=== PATIENT | male | born 1955 | race African-American/Black ===

== ENCOUNTER 2019-02-26 13:24 | Emergency (ER) | payer OTHER ==
[2019-02-26] MEDS ORDERED: ALBUTEROL 2.5 MG/3 ML NEB SOL ONE (14:14)
[2019-02-26] MEDS ORDERED: AZITHROMYCIN 250 MG TAB ONE (14:14)
[2019-02-26] MEDS ORDERED: FAMOTIDINE 20 MG TAB ONE (14:15)
[2019-02-26] MEDS ORDERED: predniSONE 20 MG TAB ONE (14:15)
--- NOTE | 2019-02-26 15:06 | ER ---
Nurse's Notes [facility] Name: Giovany Carrasquillo Age: 63 yrs Sex: Male : 1955 Arrival Date: 02/26/2019 Time: 13:27 Bed 5 Private MD: Diagnosis: Acute bronchitis, unspecified Presentation: 02/26 13:29 Presenting complaint: Patient states: "I feel like I may have pneumonia, I've been to aj the doctor 3 times for cough and congestion, I just went last week and its not getting better" Denies pain. Denies shortness of breath. Transition of care: patient was not received from another setting of care. Onset of symptoms was February 26, 2019. Risk Assessment: Do you want to hurt yourself or someone else? Patient reports no desire to harm self or others. Initial Sepsis Screen: Does the patient meet any 2 criteria? No. Patient's initial sepsis screen is negative. Does the patient have a suspected source of infection? Yes: Productive cough/pneumonia. Care prior to arrival: None. 13:29 Method Of Arrival: Ambulatory [facility] 13:29 Acuity: MADONNA 3 aj Triage Assessment: 13:31 General: Appears in no apparent distress. comfortable, Behavior is calm, cooperative, aj1 appropriate for age. Pain: Denies pain. Neuro: Level of Consciousness is awake, alert, obeys commands. Cardiovascular: Patient's skin is warm and dry. Respiratory: Airway is patent Respiratory effort is even, unlabored, Respiratory pattern is regular, symmetrical. Historical: - Allergies: 13:31 No Known Allergies; aj1 - Home Meds: 13:31 Flomax Oral [Active]; blood pressure medicine [Active]; aj1 - PMHx: 13:31 Hypertension; aj1 - Immunization history:: Flu vaccine is up to date. - Social history:: Smoking status: Patient uses tobacco products, smokes one-half pack cigarettes per day. - Ebola Screening: : Patient denies travel to an Ebola-affected area in the 21 days before illness onset. Screenin:04 Abuse screen: Denies threats or abuse. Nutritional screening: No deficits noted. tw2 Tuberculosis screening: No symptoms or risk factors identified. Fall Risk None identified. Assessment: 13:45 General: Appears in no apparent distress. comfortable, Behavior is calm, cooperative, jl7 appropriate for age. Pain: Denies pain. Neuro: Level of Consciousness is awake, alert, obeys commands, Oriented to person, place, time, situation. Cardiovascular: Heart tones present Patient's skin is warm and dry. Respiratory: Airway is patent Respiratory effort is even, unlabored, Respiratory pattern is regular, symmetrical, Breath sounds are clear bilaterally. Derm: Skin is pink, warm \\T\\ dry. Musculoskeletal: No signs and/or symptoms reported regarding the musculoskeletal system. 15:00 Reassessment: Patient appears in no apparent distress at this time. No changes from jl7 previously documented assessment. Patient and/or family updated on plan of care and expected duration. Pain level reassessed. Patient is alert, oriented x 3, equal unlabored respirations, skin warm/dry/pink. 15:15 Reassessment: Patient appears in no apparent distress at this time. No changes from tw2 previously documented assessment. Patient and/or family updated on plan of care and expected duration. Pain level reassessed. Patient is alert, oriented x 3, equal unlabored respirations, skin warm/dry/pink. Vital Signs: 13:31 BP 169 / 68; Pulse 55; Resp 18; Temp 98.0; Pulse Ox 100% on R/A; Weight 94.35 kg (R); aj1 Height 6 ft. 1 in. (185.42 cm) (R); Pain 0/10; 15:00 BP 161 / 62; Pulse 58; Resp 19; Pulse Ox 98% on Nebulizer Mask; jl7 13:31 Body Mass Index 27.44 (94.35 kg, 185.42 cm) aj1 ED Course: 13:27 Patient arrived in ED. mr 13:30 Juju Ray FNP-C is PHCP. snw 13:30 Tammy Rouse MD is Attending Physician. snw 13:30 Triage completed. aj1 13:31 Arm band placed on Patient placed in an exam room. aj1 13:32 Bed in low position. Call light in reach. tw2 13:39 Divine Lui, CORA is Primary Nurse. jl7 14:59 Chest Pa And Lat (2 Views) XRAY In Process Unspecified. EDMS 15:20 No provider procedures requiring assistance completed. Patient did not have IV access tw2 during this emergency room visit. Administered Medications: 14:18 Drug: Albuterol 2.5 mg Route: Inhalation; tw2 14:19 Drug: Albuterol 2.5 mg Route: Inhalation; tw2 15:09 Follow up: Response: No adverse reaction; No change in condition jl7 14:19 Drug: Albuterol 2.5 mg Route: Inhalation; tw2 14:19 Drug: predniSONE 40 mg Route: PO; tw2 15:09 Follow up: Response: No adverse reaction jl7 14:19 Drug: Pepcid 20 mg Route: PO; tw2 15:09 Follow up: Response: No adverse reaction jl7 14:19 Drug: Zithromax 500 mg Route: PO; tw2 15:09 Follow up: Response: No adverse reaction jl7 Outcome: 15:04 Discharge ordered by . snben 15:20 Discharged to home ambulatory. tw 15:20 Condition: stable 15:20 Discharge instructions given to patient, family, Instructed on discharge instructions, follow up and referral plans. medication usage, Demonstrated understanding of instructions, follow-up care, medications, Prescriptions given X 4. 15:27 Patient left the ED. jl7 Signatures: Dispatcher [employer] EDMS Xiomy Hopper, RN RN aj1 Juju Ray, SILK EXAMINER-C SILK EXAMINER-Ariella Ospina mr Luna Bryson RN RN tw2 Divine Lui RN RN jl7
--- NOTE | 2019-02-26 15:06 | EDPHYS ---
Physician Documentation [facility] Name: Giovany Carrasquillo Age: 63 yrs Sex: Male : 1955 Arrival Date: 02/26/2019 Time: 13:27 Bed 5 Private MD: ED Physician Tammy Rouse HPI: 02/26 14:06 This 63 yrs old Black Male presents to ER via Ambulatory with complaints of Cough. snw 14:06 The patient or guardian reports airway noise, cough, flu symptoms, low-grade fever, snw myalgias, coughing all night. Onset: The symptoms/episode began/occurred gradually, 2 week(s) ago, and became persistent. Severity of symptoms: At their worst the symptoms were moderate, severe, in the emergency department the symptoms are unchanged. Associated signs and symptoms: Pertinent positives: cough. The patient has experienced similar episodes in the past, several times. x 2 for same s/s. Historical: - Allergies: 13:31 No Known Allergies; aj1 - Home Meds: 13:31 Flomax Oral [Active]; blood pressure medicine [Active]; aj1 - PMHx: 13:31 Hypertension; aj1 - Immunization history:: Flu vaccine is up to date. - Social history:: Smoking status: Patient uses tobacco products, smokes one-half pack cigarettes per day. - Ebola Screening: : Patient denies travel to an Ebola-affected area in the 21 days before illness onset. ROS: 14:06 Constitutional: Negative for fever, chills, and weight loss, Eyes: Negative for injury, snw pain, redness, and discharge, ENT: Negative for injury, pain, and discharge, Neck: Negative for injury, pain, and swelling, Cardiovascular: Negative for chest pain, palpitations, and edema, Abdomen/GI: Negative for abdominal pain, nausea, vomiting, diarrhea, and constipation, Back: Negative for injury and pain, : Negative for injury, bleeding, discharge, and swelling, MS/Extremity: Negative for injury and deformity, Skin: Negative for injury, rash, and discoloration, Neuro: Negative for headache, weakness, numbness, tingling, and seizure. 14:06 Respiratory: Positive for cough, wheezing, expiratory. Exam: 14:05 Constitutional: This is a well developed, well nourished patient who is awake, alert, snw and in no acute distress. Head/Face: Normocephalic, atraumatic. Eyes: Pupils equal round and reactive to light, extra-ocular motions intact. Lids and lashes normal. Conjunctiva and sclera are non-icteric and not injected. Cornea within normal limits. Periorbital areas with no swelling, redness, or edema. ENT: Nares patent. No nasal discharge, no septal abnormalities noted. Tympanic membranes are normal and external auditory canals are clear. Oropharynx with no redness, swelling, or masses, exudates, or evidence of obstruction, uvula midline. Mucous membranes moist. Neck: Trachea midline, no thyromegaly or masses palpated, and no cervical lymphadenopathy. Supple, full range of motion without nuchal rigidity, or vertebral point tenderness. No Meningismus. Chest/axilla: Normal chest wall appearance and motion. Nontender with no deformity. No lesions are appreciated. Cardiovascular: Regular rate and rhythm with a normal S1 and S2. No gallops, murmurs, or rubs. Normal PMI, no JVD. No pulse deficits. 14:05 Abdomen/GI: Soft, non-tender, with normal bowel sounds. No distension or tympany. No guarding or rebound. No evidence of tenderness throughout. Back: No spinal tenderness. No costovertebral tenderness. Full range of motion. Skin: Warm, dry with normal turgor. Normal color with no rashes, no lesions, and no evidence of cellulitis. MS/ Extremity: Pulses equal, no cyanosis. Neurovascular intact. Full, normal range of motion. Neuro: Awake and alert, GCS 15, oriented to person, place, time, and situation. Cranial nerves II-XII grossly intact. Motor strength 5/5 in all extremities. Sensory grossly intact. Cerebellar exam normal. Normal gait. Psych: Awake, alert, with orientation to person, place and time. Behavior, mood, and affect are within normal limits. 14:05 Respiratory: the patient does not display signs of respiratory distress, Respirations: no acute changes, Breath sounds: bronchial sounds, that are moderate, are heard diffusely, rhonchi, that are moderate, are located in both bases, wheezing: expiratory that is moderate, is heard diffusely. Vital Signs: 13:31 BP 169 / 68; Pulse 55; Resp 18; Temp 98.0; Pulse Ox 100% on R/A; Weight 94.35 kg (R); aj1 Height 6 ft. 1 in. (185.42 cm) (R); Pain 0/10; 15:00 BP 161 / 62; Pulse 58; Resp 19; Pulse Ox 98% on Nebulizer Mask; jl7 13:31 Body Mass Index 27.44 (94.35 kg, 185.42 cm) aj1 MDM: 13:53 Patient medically screened. snw 15:10 Data reviewed: vital signs, nurses notes. Data interpreted: Pulse oximetry: on room air snw is 98 %. Interpretation: normal. Counseling: I had a detailed discussion with the patient and/or guardian regarding: the historical points, exam findings, and any diagnostic results supporting the discharge/admit diagnosis, lab results, radiology results, the need for outpatient follow up, to return to the emergency department if symptoms worsen or persist or if there are any questions or concerns that arise at home. Special discussion: I have referred the patient to see his PCP for further evaluation of high blood pressure. Based on the history and exam findings, there is no indication for further emergent testing or inpatient evaluation. I discussed with the patient/guardian the need to see the primary care provider for further evaluation of the symptoms. 02/26 13:40 Order name: Chest Pa And Lat (2 Views) XRAY; Complete Time: 16:12 snw Administered Medications: 14:18 Drug: Albuterol 2.5 mg Route: Inhalation; tw 14:19 Drug: Albuterol 2.5 mg Route: Inhalation; tw2 15:09 Follow up: Response: No adverse reaction; No change in condition jl7 14:19 Drug: Albuterol 2.5 mg Route: Inhalation; tw2 14:19 Drug: predniSONE 40 mg Route: PO; tw2 15:09 Follow up: Response: No adverse reaction jl7 14:19 Drug: Pepcid 20 mg Route: PO; tw2 15:09 Follow up: Response: No adverse reaction jl 14:19 Drug: Zithromax 500 mg Route: PO; tw2 15:09 Follow up: Response: No adverse reaction jl7 Disposition: 16:15 Co-signature as Attending Physician, Tammy Rouse MD. in2 Disposition: 02/26/19 15:04 Discharged to Home. Impression: Acute bronchitis, unspecified. - Condition is Stable. - Discharge Instructions: Acute Bronchitis, Adult, Hypertension, Rehydration, Adult. - Prescriptions for Prednisone 20 mg Oral Tablet - take 2 tablet by ORAL route once daily for 5 days; 10 tablet. Albuterol Sulfate 90 mcg/actuation - inhale 1-2 puff by INHALATION route every 4-6 hours; 1 Inhaler. Pepcid 20 mg Oral Tablet - take 1 tablet by ORAL route once daily; 20 tablet. Zithromax 500 mg Oral Tablet - take 1 tablet by ORAL route once daily for 5 days; 5 tablet. - Work release form, Medication Reconciliation Form, Thank You Letter, Antibiotic Education, Prescription Opioid Use form. - Follow up: Private Physician; When: 2 - 3 days; Reason: Recheck today's complaints, Continuance of care, Re-evaluation by your physician. Follow up: Emergency Department; When: As needed; Reason: Trouble breathing, Worsening of condition. Signatures: Dispatcher [employer] EDAZ Xiomy Hopper RN RN aj1 Juju Ray, REFUGIO-Maria Esther STUDIO DESIGNER-Csnw Luna Bryson RN RN tw2 Divine Lui RN RN jl7 Tammy Rouse MD MD ma2 Corrections: (The following items were deleted from the chart) 15:27 15:04 02/26/2019 15:04 Discharged to Home. Impression: Acute bronchitis, unspecified. jl7 Condition is Stable. Forms are Medication Reconciliation Form, Thank You Letter, Antibiotic Education, Prescription Opioid Use. Follow up: Private Physician; When: 2 - 3 days; Reason: Recheck today's complaints, Continuance of care, Re-evaluation by your physician. Follow up: Emergency Department; When: As needed; Reason: Trouble breathing, Worsening of condition. snw
--- NOTE | 2019-02-26 15:36 | RAD REPORT ---
EXAM DESCRIPTION: Cj Escalera (2 Views)02/26/2019 2:56 pm CLINICAL HISTORY: Cough COMPARISON: None FINDINGS: The lungs appear clear of acute infiltrate. The heart is normal size IMPRESSION: No acute abnormalities displayed
[2019-02-26 18:26] VITALS: TEMP 98
[2019-02-26 18:27] VITALS: BP 161/62; O2SAT 98
== END 2019-02-26 15:27 | disposition home or self-care (01) ==
LOC: ER 13:24
DX: J20.9 Acute bronchitis, unspecified (principal); I10 Essential (primary) hypertension; F17.210 Nicotine dependence, cigarettes, uncomplicated
CPT/HCPCS: 71046; 99284; J7512

== ENCOUNTER 2019-03-21 13:07 | Observation (INO) | payer MEDICARE, OTHER ==
[2019-03-21 14:01] LABS: Absolute Lymphocytes (CBC) 1.5 K/uL (0.7-4.9); Basophils % 1.3 % (0-1.3); Lymphocytes % 42.8 % (15.3-44.8); MPV 9.1 fL (7.6-11.3); RBC Red Blood Cell Count 4.68 M/uL (4.33-5.43)
[2019-03-21 14:19] LABS: BUN Blood Urea Nitrogen 14 mg/dL (7-18); Bicarbonate 28 mmol/L (21-32); Glucose Level 150 mg/dL (74-106); NT PRO-BNP 25 pg/mL (<125); Potassium 3.5 mmol/L (3.5-5.1); Sodium Level 142 mmol/L (136-145); Troponin (Emerg Dept Use Only) < 0.02 ng/mL (0.0-0.045)
--- NOTE | 2019-03-21 14:26 | RAD REPORT ---
EXAM DESCRIPTION: Cj Single View03/21/2019 2:13 pm CLINICAL HISTORY: Chest pain COMPARISON: February 2019 FINDINGS: The lungs appear clear of acute infiltrate. The heart is normal size IMPRESSION: No acute abnormalities displayed
--- NOTE | 2019-03-21 14:53 | EKG ---
Test Date: 2019-03-21 Test Time: 13:33:25 Supervisor Paper Coating: LIT MEASUREMENT RESULTS: Intervals: Rate: 54 CO: 128 QRSD: 88 QT: 398 QTc: 377 Thomson: P: 49 CO: 128 QRS: 48 T: 159 INTERPRETIVE STATEMENTS: Sinus bradycardia T wave abnormality, consider inferolateral ischemia Abnormal ECG No previous ECG available for comparison Electronically Signed On 03-21-19 14:53:27 LASTER HAND by Joey Champion
--- NOTE | 2019-03-21 15:11 | EDPHYS ---
Physician Documentation [facility] Name: Giovany Carrasquillo Age: 63 yrs Sex: Male : 1955 Arrival Date: 03/21/2019 Time: 13:12 Bed 5 Private MD: ED Physician Apolinar Barbour HPI: 03/21 15:04 This 63 yrs old Black Male presents to ER via Ambulatory with complaints of Chest Pain. rn 15:04 The patient or guardian reports chest pain that is located primarily in the anterior rn chest wall, left. Onset: 2 week(s) ago. The pain radiates to the left arm. Associated signs and symptoms: Pertinent negatives: abdominal pain, shortness of breath, syncope, vomiting. The chest pain is described as dull. Duration: The patient or guardian reports multiple episodes, that are intermittent. Modifying factors: The symptoms are alleviated by nothing. the symptoms are aggravated by nothing. Severity of pain: At its worst the pain was moderate in the emergency department the pain has improved. The patient has not experienced similar symptoms in the past. Reports 2 weeks of left sided chest pain, radiates to left arm, no previous cardiac evaluation, sent by [facility] clinic for abnormal ecg. No pattern to pain. No trauma. . Historical: - Allergies: 13:20 No Known Allergies; iw - PMHx: 13:20 Hypertension; iw - PSHx: 13:20 abdominal surgery; iw - Immunization history:: Adult Immunizations up to date. - Social history:: Smoking status: Patient uses tobacco products, smokes one-half pack cigarettes per day. - Ebola Screening: : Patient negative for fever greater than or equal to 101.5 degrees Fahrenheit, and additional compatible Ebola Virus Disease symptoms Patient denies exposure to infectious person Patient denies travel to an Ebola-affected area in the 21 days before illness onset No symptoms or risks identified at this time. - Family history:: not pertinent. - Hospitalizations: : No recent hospitalization is reported. ROS: 15:04 Constitutional: Negative for fever, chills, and weight loss, Eyes: Negative for injury, rn pain, redness, and discharge, Cardiovascular: Negative for palpitations, and edema, Respiratory: Negative for shortness of breath, cough, wheezing, and pleuritic chest pain, Abdomen/GI: Negative for abdominal pain, nausea, vomiting, diarrhea, and constipation, MS/Extremity: Negative for injury and deformity, Skin: Negative for injury, rash, and discoloration, Neuro: Negative for headache, weakness, numbness, tingling, and seizure. Exam: 15:04 Constitutional: This is a well developed, well nourished patient who is awake, alert, rn and in no acute distress. Ambulatory to room without difficulty or assistance Head/Face: Normocephalic, atraumatic. Chest/axilla: Normal chest wall appearance and motion. Nontender with no deformity. No lesions are appreciated. Cardiovascular: Regular rate and rhythm. No pulse deficits. Respiratory: No increased work of breathing, no retractions or nasal flaring. Abdomen/GI: soft, non-tender MS/ Extremity: Pulses equal, no cyanosis. Neurovascular intact. Full, normal range of motion. Equal circumference. Neuro: Awake and alert, GCS 15, oriented to person, place, time, and situation. Cranial nerves II-XII grossly intact. Motor strength 5/5 in all extremities. Sensory grossly intact. Cerebellar exam normal. Normal gait. 15:04 ECG was reviewed by the Attending Physician. rn Vital Signs: 13:20 BP 165 / 58; Pulse 67; Resp 16; Temp 98.7; Pulse Ox 98% on R/A; Weight 95.25 kg; Height iw 6 ft. 1 in. (185.42 cm); Pain 7/10; 14:22 BP 163 / 67; Pulse 55; Resp 15; Pulse Ox 99% ; sv 15:30 BP 162 / 96; Pulse 63; Resp 16; Pulse Ox 100% on R/A; hb 13:20 Body Mass Index 27.71 (95.25 kg, 185.42 cm) iw MDM: 13:23 Patient medically screened. rn 15:04 Differential diagnosis: abnormal EKG, acute myocardial infarction, acute pericarditis, rn coronary artery disease chest wall pain, costochondritis, stable angina, unstable angina. The patient was given aspirin in the Emergency Department. Data reviewed: vital signs, nurses notes, lab test result(s), EKG, radiologic studies, plain films, and as a result, I will discharge patient. Counseling: I had a detailed discussion with the patient and/or guardian regarding: the historical points, exam findings, and any diagnostic results supporting the discharge/admit diagnosis, lab results, radiology results, the need for further work-up and treatment in the hospital. Admission orders: after a detailed discussion of the patient's condition and case, the admit orders are written by me. 03/21 13:38 Order name: Basic Metabolic Panel; Complete Time: 14: rn 03/21 13:38 Order name: CBC with Diff; Complete Time: 14: rn 03/21 13:38 Order name: NT PRO-BNP; Complete Time: 14: rn 03/21 13:38 Order name: Troponin (emerg Dept Use Only); Complete Time: 14: rn 03/21 13:38 Order name: XRAY Chest (1 view); Complete Time: 14:44 rn 03/21 13:38 Order name: EKG; Complete Time: 13:39 rn 03/21 13:38 Order name: Cardiac monitoring; Complete Time: 13:39 rn 03/21 13:38 Order name: EKG - Nurse/Tech; Complete Time: 13:39 rn 03/21 13:38 Order name: IV Saline Lock; Complete Time: 13:39 rn 03/21 13:38 Order name: Labs collected and sent; Complete Time: 13:39 rn 03/21 13:38 Order name: O2 Per Protocol; Complete Time: 13:39 rn 03/21 13:38 Order name: O2 Sat Monitoring; Complete Time: 13:39 rn EC:04 Rate is 54 beats/min. Rhythm is regular. QRS [place] is Normal. OR interval is normal. QRS rn interval is normal. QT interval is normal. No Q waves. T waves are Inverted in leads V3, V4, V5, V6. No ST changes noted. Clinical impression: Sinus bradycardia and Lateral t wave inversions. Interpreted by me. Reviewed by me. Administered Medications: 14:56 Drug: Aspirin Chewable Tablet 324 mg Route: PO; hb Disposition: 03/21/19 15:10 Hospitalization ordered by Monisha Peralta for Observation. Preliminary diagnosis is Chest pain, unspecified. - Bed requested for Telemetry/MedSurg (observation). - Status is Observation. sv - Condition is Stable. - Problem is new. - Symptoms have improved. UTI on Admission? No Signatures: Dispatcher [employer] EDSalud Lemus RN RN sv Williams, Irene, RN RN iw Nieto, Roman, MD MD rn Baxter, Heather, RN RN Corrections: (The following items were deleted from the chart) 15:59 15:10 Hospitalization Ordered by Monisha Peralta MD for Observation. Preliminary diagnosis is iw Chest pain, unspecified. Bed requested for Telemetry/MedSurg (observation). Status is Observation. Condition is Stable. Problem is new. Symptoms have improved. UTI on Admission? No. rn 16:26 15:59 03/21/2019 15:10 Hospitalization Ordered by Monisha Peralta MD for Observation. sv Preliminary diagnosis is Chest pain, unspecified. Bed requested for Telemetry/MedSurg (observation). Status is Observation. Condition is Stable. Problem is new. Symptoms have improved. UTI on Admission? No. iw
--- NOTE | 2019-03-21 15:11 | ER ---
Nurse's Notes [facility] Name: Giovany Carrasquillo Age: 63 yrs Sex: Male : 1955 Arrival Date: 03/21/2019 Time: 13:12 Bed 5 Private MD: Diagnosis: Chest pain, unspecified Presentation: 03/21 13:18 Presenting complaint: Patient states: had an abnormal EKG an hour ago at [facility], c/o left sided chest pain X 2weeks , radiates to left arm. Transition of care: patient was not received from another setting of care. Onset of symptoms was March 09, 2019. Risk Assessment: Do you want to hurt yourself or someone else? Patient reports no desire to harm self or others. Initial Sepsis Screen: Does the patient meet any 2 criteria? No. Patient's initial sepsis screen is negative. Does the patient have a suspected source of infection? No. Patient's initial sepsis screen is negative. Care prior to arrival: None. 13:18 Method Of Arrival: Ambulatory 13:18 Acuity: MADONNA 3 iw Historical: - Allergies: 13:20 No Known Allergies; iw - PMHx: 13:20 Hypertension; iw - PSHx: 13:20 abdominal surgery; iw - Immunization history:: Adult Immunizations up to date. - Social history:: Smoking status: Patient uses tobacco products, smokes one-half pack cigarettes per day. - Ebola Screening: : Patient negative for fever greater than or equal to 101.5 degrees Fahrenheit, and additional compatible Ebola Virus Disease symptoms Patient denies exposure to infectious person Patient denies travel to an Ebola-affected area in the 21 days before illness onset No symptoms or risks identified at this time. - Family history:: not pertinent. - Hospitalizations: : No recent hospitalization is reported. Screenin:25 Abuse screen: Denies threats or abuse. Denies injuries from another. Nutritional sv screening: No deficits noted. Tuberculosis screening: No symptoms or risk factors identified. Fall Risk None identified. Assessment: 13:25 General: Appears in no apparent distress. uncomfortable, well groomed, well developed, sv Behavior is calm, cooperative, appropriate for age. Pain: Complains of pain in anterior aspect of left upper chest and left breast Pain radiates to palmar aspect of left forearm Pain currently is 7 out of 10 on a pain scale. Quality of pain is described as sharp, Pain began 2 weeks ago Is intermittent, Current management is with BC powder. Neuro: Level of Consciousness is awake, alert, obeys commands, Oriented to person, place, time, situation, Moves all extremities. Full function Gait is steady, Speech is normal. Cardiovascular: Patient's skin is warm and dry. Pulses are 3+ in right radial artery and left radial artery Rhythm is sinus bradycardia with an inverted T wave. Respiratory: Airway is patent Respiratory effort is even, unlabored, Respiratory pattern is regular, symmetrical. Derm: Skin is normal. Musculoskeletal: Range of motion: intact in all extremities. 14:30 Reassessment: Patient appears in no apparent distress at this time. Patient and/or hb family updated on plan of care and expected duration. Pain level reassessed. Patient is alert, oriented x 3, equal unlabored respirations, skin warm/dry/pink. 15:30 Reassessment: Patient appears in no apparent distress at this time. Patient and/or hb family updated on plan of care and expected duration. Pain level reassessed. Patient is alert, oriented x 3, equal unlabored respirations, skin warm/dry/pink. 16:20 Reassessment: Patient appears in no apparent distress at this time. Patient and/or sv family updated on plan of care and expected duration. Pain level reassessed. Patient is alert, oriented x 3, equal unlabored respirations, skin warm/dry/pink. Vital Signs: 13:20 BP 165 / 58; Pulse 67; Resp 16; Temp 98.7; Pulse Ox 98% on R/A; Weight 95.25 kg; Height iw 6 ft. 1 in. (185.42 cm); Pain 7/10; 14:22 BP 163 / 67; Pulse 55; Resp 15; Pulse Ox 99% ; sv 15:30 BP 162 / 96; Pulse 63; Resp 16; Pulse Ox 100% on R/A; hb 13:20 Body Mass Index 27.71 (95.25 kg, 185.42 cm) iw ED Course: 13:12 Patient arrived in ED. mr 13:19 Triage completed. iw 13:20 Arm band placed on. iw 13:23 Apolinar Barbour MD is Attending Physician. rn 13:25 Patient has correct armband on for positive identification. Placed in gown. Bed in low sv position. Call light in reach. Side rails up X2. Adult w/ patient. quality assurance monitor body on. Pulse ox on. NIBP on. Door closed. Warm blanket given. Head of bed elevated. 13:25 Inserted saline lock: 22 gauge in right forearm, using aseptic technique. ,using sv aseptic technique. diffusics Blood collected. Flushed forearm with 5 ml normal saline. 13:25 Patient maintains SpO2 saturation greater than 95% on room air. sv 13:31 Salud Vila, CORA is Primary Nurse. sv 13:41 EKG done, by electronic lab technician. reviewed by Apolinar Barbour MD. at1 13:43 Awaiting lab results, Awaiting for x-ray. sv 14:13 XRAY Chest (1 view) In Process Unspecified. EDMS 15:10 Monisha Peralta MD is Hospitalizing Provider. rn 16:26 No provider procedures requiring assistance completed. Patient admitted, IV remains in sv place. intact. Administered Medications: 14:56 Drug: Aspirin Chewable Tablet 324 mg Route: PO; hb Outcome: 15:10 Decision to Hospitalize by Provider. rn 16:26 Patient left the ED. sv 16:26 Admitted to Tele accompanied by tech, family with patient, via wheelchair, with chart, sv Report called to Deb SHEPHERD 16:26 Condition: stable 16:26 Instructed on the need for admit. Signatures: Dispatcher [employer] EDMS Salud Vila, RN CORA young RichardsAriella Irene RN Apolinar Peters MD MD rn Gonzales, Amanda, k [employer] school professional EKG Tat1 Mary Anne Mi RN RN hb Corrections: (The following items were deleted from the chart) 13:43 13:43 Awaiting lab results, sv sv 13:52 13:25 Cardiovascular: Patient's skin is warm and dry. Pulses are 3+ in right radial sv artery and left radial artery Rhythm is sinus bradycardia sv
[2019-03-21] MEDS ORDERED: ASPIRIN 81 MG CHEWABLE TABLET PO ONE (15:38)
[2019-03-21] MEDS ORDERED: NITROGLYCERIN 0.4 MG/TAB SL PRN (16:01)
[2019-03-21 17:06] VITALS: BMI 27.7
[2019-03-21] MEDS ORDERED: ONDANSETRON 4 MG/2 ML VIAL IV PRN (17:09)
[2019-03-21] MEDS ORDERED: MAGNESIUM HYDROXIDE 8% 30 ML PO PRN (17:09)
[2019-03-21] MEDS ORDERED: ALPRAZOLAM 0.25 MG TABLET PO PRN (17:09)
[2019-03-21] MEDS ORDERED: ACETAMINOPHEN 500 MG TAB PO PRN (17:09)
[2019-03-21 18:17] LABS: CKMB Creatine Kinase MB 2.6 ng/mL (0.3-3.6); Thyroid Stimulating Hormone 0.564 uIU/mL (0.360-3.740); Troponin I < 0.02 ng/mL (0.0-0.045)
[2019-03-21] MEDS ORDERED: POTASSIUM CL SA 10 MEQ TAB PO ONE (19:35)
--- NOTE | 2019-03-21 20:01 | CON ---
History Of Present Illness: Mr. Carrasquillo is 63. He came to the hospital with chest pain. The chest pain has been there for several weeks. It is mostly left pectoral, feels as some in his left arm. No paresthesias just some mild pain. It does not seem to change when he eats or exerts himself or aguilera s any certain body positions. He has been in our hospital emergency department for several hours whe re cardiac enzymes are normal. Serial enzymes have not been done. An EKG indicates left ventricular hypertrophy with secondary repolarization abnormality. Patient is a regular tobacco user. Denies d yslipidemia or diabetes. He has hypertension, seems to be rather poorly controlled at least while he is here. His blood pressures have been above the ideal range. Allergies: HE DENIES ANY ALLERGIES. Medications: We do not have the list of his medicines but include Flomax and a medicine for hyperten dipti that we do not know the name of. Physical Examination: Vital Signs: His most recent blood pressure 165/58, pulse 67. He is 6 feet 1 inch, 95.25 kg, so a l ittle over 200 pounds. Body mass index 27.7. HEENT: Unremarkable. Lungs: Clear. Cardiac: Within normal limits. Impression: The patient has very atypical chest pain. But an abnormal EKG, significant risk factors , he will be in the hospital until myocardial infarction is ruled out and we will do a stress test. Stress test will be done sally ANN/LORI Voice ID: [id number] Report ID: [id number]
[2019-03-21] MEDS ORDERED: TAMSULOSIN 0.4 MG SR CAP PO SCH (21:00)
[2019-03-22 00:41] LABS: Urine Appearance CLEAR; Urine Bilirubin NEGATIVE (NEG); Urine Blood NEGATIVE (NEG); Urine Color YELLOW; Urine Glucose NEGATIVE (NEG); Urine Protein NEGATIVE (NEG)
[2019-03-22 00:42] LABS: Urine Microscopic Reflex NO UMIC
[2019-03-22 01:29] LABS: CKMB Creatine Kinase MB 1.9 ng/mL (0.3-3.6); Troponin I < 0.02 ng/mL (0.0-0.045)
--- NOTE | 2019-03-22 04:02 | HP ---
Date of Admission: 03/21/2019 Chief Complaint: Chest pain. History Of Present Illness: This patient is a 63-year-old male, who presented for chest pain. He has a history of hypertension and tobacco abuse. This patient started to experience chest pain 1-2 weeks ago. The chest pain is located in the left chest and radiates to left arm. The intensity is about 7 to 8/10. He described the chest pain is pressure-like. No elevating or aggravating factors. No shortness of breath. He does not complain of any cough or palpitations. No fever or chills. He presented to the emergency room for persistent chest pain in the ED. Vitals are stable. WBC 3.6 and hemoglobin 14.1 and the platelet 234. Sodium 142, potassium 3.5, creatinine 1.2 , glucose 150. Troponin negative. EKG demonstrates V3, V4, V5 inversion. There is no previous EKG to compare. The patient was admitted for further management. Past Medical History: 1. Hypertension. 2. Tobacco abuse. Past Surgical History: Patient has abdomen hernia repair. Home Medication: Reviewed. Allergies: NO KNOWN ALLERGIES. Family History: Noncontributory. Social History: Patient admits smoking, but he quitted. Review of Systems: No fever, no chills. No numbness or weakness. For the rest of the review of systems, please see HPI. Physical Examination: Vital Signs: Blood pressure 165/58, pulse 67, temperature 98.7, oxygen saturation 98 on room air. HEENT: Unremarkable. PERRLA. EOMI. Neck: No JVD. Supple. Chest: Clear to auscultation. No labored breathing. No rales. Heart: Normal S1, S2. Regular rhythm and rate. No murmur. Abdomen: Soft, nontender. Bowel sounds present. Extremities: No edema, no cyanosis. Neurologic: Patient is awake, alert, and oriented x3. No focal weakness or numbness. Psychiatric: Mood stable. No anxiety or agitation. Laboratory Data: Please see HPI. Assessment And Plan: 1. Chest pain. This patient has a history of hypertension and tobacco abuse. The chest pain is located in the left chest and radiated to left arm. We started aspirin. We will check lipid panel in the morning. We will follow troponin series. Cardiology was consulted. Stress test was ordered. Echo was ordered. 2. Hypertension. Currently, the blood pressure is relatively high. We will add hydralazine as needed. We will resume home BP medications. 3. Tobacco abuse. Patient already quitted smoking. ROXANNE/MODStan Voice ID: [id number] APPLE
[2019-03-22 04:22] LABS: Protime INR 0.95
[2019-03-22 04:24] LABS: Absolute Lymphocytes (CBC) 1.6 K/uL (0.7-4.9); Basophils % 1.1 % (0-1.3); Hematocrit 36.1 % (39.6-49.0); Lymphocytes % 46.9 % (15.3-44.8); MPV 8.7 fL (7.6-11.3); RBC Red Blood Cell Count 4.01 M/uL (4.33-5.43)
[2019-03-22 04:29] LABS: Albumin 3.5 g/dL (3.4-5.0); Bilirubin Total 0.2 mg/dL (0.2-1.0); Magnesium 1.9 mg/dL (1.8-2.4); Phosphorus 3.8 mg/dL (2.5-4.9); Potassium 4.1 mmol/L (3.5-5.1); Protein, Total 6.9 g/dL (6.4-8.2)
[2019-03-22] MEDS ORDERED: ASPIRIN 81 MG CHEWABLE TABLET PO SCH (09:00)
[2019-03-22] MEDS ORDERED: ENOXAPARIN 40 MG/0.4 ML SQ SCH (09:00)
[2019-03-22] MEDS ORDERED: AMLODIPINE 10 MG TAB PO SCH (09:00)
--- NOTE | 2019-03-22 10:01 | RAD REPORT ---
EXAM DESCRIPTION: NM - Rest Stress Cardiac Imaging - 03/22/2019 9:41 am CLINICAL HISTORY: Chest pain COMPARISON: None. TECHNIQUE: The patient was administered approximately 10 mCi of Tc 99m Sestamibi prior to resting SP ECT imaging of the heart. The patient was then administered approximately 30 mCi of Tc 99m Sestamibi following exercise or pharmacologic stress. Multiplanar SPECT images were reviewed. FINDINGS: The end diastolic volume is 129 ml, the end systolic volume is 52 ml, and the ejection fra ction is 60 %. No stress-induced ischemic changes identifiable. Moderately large fixed defect is present along the i nferior wall from base to apex. This could be scarring or more likely diaphragm attenuation artifact. Correlation can be made with EKG findings. No other fixed defect or scarring changes seen. IMPRESSION: No stress-induced ischemic change identifiable. Large fixed defect along the inferior wall from base to apex is probably attenuation artifact from di aphragm rather than scarring. However, correlation can be made with EKG findings and history. End-diastolic volume is enlarged at 129 milliliters. Ejection fraction normal range at 60%.
[2019-03-22 10:36] LABS: CKMB Creatine Kinase MB 2.2 ng/mL (0.3-3.6); Troponin I < 0.02 ng/mL (0.0-0.045)
[2019-03-22 11:48] VITALS: O2SAT 96
[2019-03-22 12:09] VITALS: BP 139/62; TEMP 97.6
--- NOTE | 2019-03-22 12:51 | ECHO ---
HEIGHT: 6 ft 1 in WEIGHT: 210 lb 0 oz DATE OF STUDY: 03/22/[address]: Monisha Peralta MD 2-DIMENSIONAL: YES M.MODE: YES DOPPLER: YES COLOR FLOW: YES TDS: NO PORTABLE: NO DEFINITY: NO BUBBLE STUDY: NO DIAGNOSIS: CHEST PAIN CARDIAC HISTORY: CATHERIZATION: NO SURGERY: NO PROSTHETIC VALVE: NO PACEMAKER: NO MEASUREMENTS (cm) DIASTOLIC (NORMALS) SYSTOLIC (NORMALS) IVSd 1.2 (0.6-1.2) LA Diam 3.4 (1.9-4.0) LVEF 63% LVIDd 4.8 (3.5-5.7) LVIDs 3.2 (2.0-3.5) %FS 34% LVPWd 1.0 (0.6-1.2) Ao Diam 2.8 (2.0-3.7) 2 DIMENSIONAL ASSESSMENT: RIGHT ATRIUM: NORMAL LEFT ATRIUM: NORMAL RIGHT VENTRICLE: NORMAL LEFT VENTRICLE: NORMAL TRICUSPID VALVE: NORMAL MITRAL VALVE: NORMAL PULMONIC VALVE: NORMAL AORTIC VALVE: NORMAL PERICARDIAL EFFUSION: NONE AORTIC ROOT: NORMAL LEFT VENTRICULAR WALL MOTION: NORMAL. DOPPLER/COLOR FLOW: NORMAL. COMMENTS: NORMAL 2D ECHO WITH DOPPLER. NO WALL MOTION ABNORMALITY. NO EFFUSION. TECHNOLOGIST: MARICRUZ DAVIS
--- NOTE | 2019-03-22 12:58 | TREADMILL ---
70% H.R.: 109 85% H.R.: 132 90% H.R.: 140 100% H.R.: 155 DX: CHEST PAIN Date of Study: 03/22/2019 Ht: 6 1 Wt: 210 lb 0 oz Consulting Physician: JUAN R MEDICATIONS: TYLENOL, XANAX, NORVASC, ASPIRIN, LOVENOX, NITROSTAT, ZOFRAN, KLOR-CON, FLOMAX HISTORY: LEFT ARM PAIN, HISTORY OF HYPERTENISON. PHYSICIAL EXAMINATION: RESTING B.P.: 137/66 RESTING H.R.: 60 RESTING EKG: SINUS RHYTHM/ NORMAL ST. PROTOCOL: JAMAL CARDIOLITE EXERCISE TIME: 5:31 MAXIMUM HEART RATE: 150 % OF PREDICTED B.P. AT PEAK STRESS: 178/66 H.R. AT 1 MINUTE POST EXERCISE: 123 IMPRESSION: STOPPED FOR TARGET RATE AND FATIGUE AND SHORTNESS OF BREATH. OCCASIONAL PREMATURE VENTRICULAR COMPLEXES NOTED. PATIENT TOLERATED WELL, DENIED CHEST PAIN, NO CHANGE IN LEFT ARM PAIN.
--- NOTE | 2019-03-22 17:59 | PN ---
Date of Progress Note: 03/22/2019 Mr. Carrasquillo had an echocardiogram today, which was normal. His EKG has a possible inferolateral isc hemia. He had a negative chest x-ray. He also had a Myoview today, which is normal. His symptoms s ound more musculoskeletal or possibly secondary to cervical spondylosis. His monitor remained in sin us rhythm. He is fairly asymptomatic today. He can go home whenever it is okay with Dr. Peralta, and ben bo will see him in the office on an as-needed basis. PRABHA/LORI Voice ID: [id number] Report ID: [id number]
--- NOTE | 2019-03-23 01:42 | DS ---
Date of Discharge: 03/22/2019 Hospital Course: This patient is a 63-year-old male who presented for chest pain. He has a history of hypertension and tobacco abuse. He has been suffering from chest pain for 2 weeks. This patient presented to the emergency room. His troponin was negative. EKG demonstrated T-wave changes but no previous one to compare. The patient was admitted for observation. His troponin has been negative. His chest pain is resolved after admission. Echo was ordered, which demonstrated normal ejection fraction. Stress test was ordered by supervisor painting shipyard, which is unremarkable. Discussed with supervisor painting shipyard, who recommended discharge patient. His vital was stable. He was then discharged to home. Physical Examination: Vital Signs: On discharge, vitals were stable. General: Patient awake and alert, no acute distress. HEENT: Unremarkable. Chest: Clear to auscultation. No labored breathing. No wheezing. Heart: Normal S1, S2. Regular rhythm and rate. Abdomen: Soft, nontender. Bowel sounds present. Extremities: No edema, no cyanosis. Neuro: Patient awake and alert, and oriented x3. Nonfocal. Laboratory Data: On discharge, WBC normal, hemoglobin 12.4, platelet 214. Sodium 144, potassium 4.1, creatinine 1.19. Hemoglobin A1c 6.6. Discharge Diagnoses: 1. Atypical chest pain. 2. Hypertension. 3. Prediabetes. 4. Tobacco abuse. Discharge Instructions: 1. Please follow PCP in 1 week. 2. Please follow diet modification and exercise for borderline diabetes. 3. Please call the emergency room if having chest pain or shortness of breath. Discharge Medications: Aspirin 81 mg daily. Otherwise, see discharge medication list. Discharge Activity: As tolerated. Discharge Diet: Healthy heart diet. I spent about 25 minutes to discharge the patient. QT/MODL Voice ID: [id number] Report ID: [id number] APPLE
== END 2019-03-22 16:04 | disposition home or self-care (01) ==
LOC: ER 13:07 → ERHOLD 15:27 → 4TH 16:19
PROVIDERS: ADMIT Internal Medicine; ATTEND Internal Medicine
DX: R07.89 Other chest pain (principal); I10 Essential (primary) hypertension; R73.03 Prediabetes; F17.210 Nicotine dependence, cigarettes, uncomplicated
CPT/HCPCS: 93017; 93005; 93306; 85025 ×2; 80048; 36415; 83735; 84100; 85610; 80061; 85730; 84443; 81003; 83036; 84484 ×4; 82553 ×3; 80053; 83880; 71045; 94760 ×4; 78452; 99285; J1650; A9500; G0378 ×3

== ENCOUNTER 2021-03-29 12:45 | Emergency (ER) | payer MEDICARE, OTHER ==
--- OUTSIDE RECORDS SUMMARY | 2021-03-29 12:47 | XMS REPORT | Continuity of Care Document ---
:1955 Author Organization [facility] t Address [address] [place] [address] Care Team Providers Name Role Phone DONTA Attending Clinician Unavailable MATY Attending Clinician Unavailable Petra RUBIN Attending Clinician Unavailable Stan DOBBS Attending Clinician Unavailable Payers Payer Name Policy Type Policy Number Effective Date Expiration Date Sadi guido CAROL/ANKITA [id number] 2019 MEDICARE ADVANTAGE 00:00:00 Problems This patient has no known problems. Allergies, Adverse Reactions, Alerts Allergy Allergy Status Severity Reaction(s) Onset Inactive Treating Comm ents Source Name Type Date Date Clinician NO KNOWN Drug Active [facility] ALLERGIE Class [facility] Medications This patient has no known medications. Procedures This patient has no known procedures. Encounters Start End Encounter Admission Attending Care Care Encounter Source Date/Time Date/Time Type Type Clinicians Facility Department ID 2020-10-02 2020-10-02 Outpatient R DONTA, [facility] [id number] Univers 15:00:00 15:00:00 ELIS [id number] [facility] 2020-10-02 2020-10-02 Outpatient R DONTA, [facility] [id number] Univers 15:00:00 15:00:00 ELIS y o [facility] 2020-09-20 2020-09-20 Outpatient R DONTA, [facility] [id number] Univers 15:00:00 15:00:00 ELIS [id number] [facility] 2020-09-20 2020-09-20 Outpatient R DONTA, [facility] [id number] Univers 15:00[facility]00 [facility]00[facility] 2020-09-19 Outpatient R DONTA, [facility] [id number] Univers 11:20:00 11:20:00 ELIS [id number] ity o [facility] 2020-09-07 2020-09-07 Outpatient R DONTA, [facility] [id number] Univers 13:00:00 13:00:00 RIGOBERTOMILYSHELBI [id number] ity o f [facility] 2020-09-07 2020-09-07 Outpatient R DONTA, [facility] [id number] Univers 13:00:00 13:00:00 ELIS stewarty o f [facility] 2020-08-22 2020-08-22 Outpatient R DONTA, [facility] [id number] Univers 09:20:00 09:20:00 RIGOBERTOFRANCISCO [id number] ity o [facility] 2020-08-22 2020-08-22 Outpatient R DONTA, [facility] [id number] Univers 09:20:00 09:20:00 ELIS yang o [facility] 2020-01-30 2020-01-30 Outpatient R ALZWERI, [facility] [id number] Univers 15:00:00 15:00:00 [facility] [id number] [facility] 2020-01-30 2020-01-30 Outpatient R ALZWERI, [facility] [id number] Univers 15:00:00 15:00:00 [facility] 2020-01-02 2020-01-02 Outpatient R GRAMM, [facility] [id number] Univers 13:15:00 13:15:00 FACUNDO [id number] [facility] 2020-01-02 2020-01-02 Outpatient R GRAMM, [facility] [id number] Univers 13:15:00 13:15:00 FACUNDO [facility] 2019-11-28 2019-11-28 Outpatient R ALZWERI, [facility] [id number] Univers 15:30:00 15:30:00 [facility] [id number] [facility] 2019-11-28 2019-11-28 Outpatient R ALZWERI, [facility] [id number] Univers 15:30:00 15:30:00 [facility] 2019-11-21 2019-11-21 Outpatient R [facility] [id number] Univers 13:00:00 13:00:00 [id number] ity [facility] 2019-11-21 2019-11-21 Outpatient R [facility] [id number] Univers 13:00:00 13:00:00 ity of [facility] 2019-10-27 2019-10-27 Outpatient R MATY, [facility] [id number] Univers 15:30:00 15:30:00 SANGEETA ity [facility] 2019-10-27 2019-10-27 Outpatient R MATY [facility] [id number] Univers 15:30:00 15:30:00 SANGEETA ity of [facility] 2019-10-12 2019-10-12 Outpatient R [facility] [id number] Univers 13:45:00 13:45:00 ity of [facility] 2019-10-12 2019-10-12 Outpatient R [facility] [id number] Univers 13:45:00 13:45:00 ity of [facility] 2019-10-10 2019-10-10 Outpatient R [facility] [id number] Univers 14:45:00 14:45:00 ity [facility] 2019-10-10 2019-10-10 Outpatient R DOBBS, [facility] [id number] Univers 14:45:00 14:45:00 DIPAK ity [facility] 2019-06-28 2019-06-28 Outpatient R DONTA, [facility] [id number] Univers 14:40:00 14:40:00 ELIS [id number] ity o f [facility] 2019-06-28 2019-06-28 Outpatient R DONTA, [facility] [id number] Univers 14:40:00 14:40:00 ELIS ity o f [facility] 2019-06-13 2019-06-13 Outpatient R MATY [facility] [id number] Univers 13:45:00 13:45:00 [facility] ity [facility] 2019-06-13 2019-06-13 Outpatient R MATY, [facility] [id number] Univers 13:45:00 13:45:00 SANGEETA ity [facility] 2019-06-07 2019-06-07 Outpatient R DONTA, [facility] [id number] Univers 14:20:00 14:20:00 ELIS [id number] trey o [facility] 2019-06-07 2019-06-[address] [facility] [id number] Univers 14:20:00 14:20:00 ELIS yang o [facility] 2019-05-16 2019-05-16 Outpatient R [facility] [id number] Univers 15:00:00 15:00:00 [facility] 2019-05-16 2019-05-[address] [facility] [id number] Univers 14:30:00 14:30:00 SANGEETA [facility] Results This patient has no known results.
[2021-03-29 13:44] LABS: Urine Blood 1+ (Negative); Urine Glucose Negative (Negative); Urine Protein Negative (Negative); Urine Specific Gravity >=1.030 (1.005-1.030)
--- NOTE | 2021-03-29 14:09 | RAD REPORT ---
EXAM DESCRIPTION: CTStone Protocol - 03/29/2021 1:51 pm CLINICAL HISTORY: urine retention COMPARISON: No comparisons TECHNIQUE: CT of the abdomen and pelvis was performed. All CT scans are performed using dose optimization technique as appropriate and may include automated exposure control or mA/KV adjustment according to patient size. FINDINGS: Lower chest: No acute abnormality. Liver: No acute abnormality or suspicious lesions. Biliary: No biliary ductal dilatation. Stomach: No significant focal abnormality. Duodenum: No significant focal abnormality. Pancreas: No significant abnormality. Spleen: No significant abnormality. Adrenal: No suspicious lesions. Kidney/ureter: Mild bilateral hydronephrosis. No renal calculi. Retroperitoneum: No retroperitoneal adenopathy. Vascular: No aneurysm. Bowel: Moderate segment of small bowel wall thickening at the ileum though not including the terminal ileum.. Partial colectomy. Peritoneum: Small volume of fluid in the right inguinal canal and scrotum. Small volume of ascites. Bladder: Bladder wall thickening but the bladder is decompressed via Lion catheter. Reproductive: Prostatomegaly. Bones: No acute fracture. Fused sacroiliac joints. Other: n/a IMPRESSION: 1. Thick-walled bladder which is decompressed via Lion catheter. Moderate prostatomegal y. Suspect urinary retention. 2. Moderate segment of small bowel wall thickening involving the ileum. This may reflect an enteritis with differential to include infectious/ inflammatory etiologies.
[2021-03-29 15:20] LABS: Urine Bacteria <20 /HPF (NONE SEEN)
--- NOTE | 2021-03-29 15:25 | ER ---
Nurse's Notes [facility] Name: Giovany Carrasquillo Age: 65 yrs Sex: Male : 1955 Arrival Date: 03/29/2021 Time: 12:46 Bed 23 Private MD: Enrique Multani Diagnosis: Retention of urine, unspecified Presentation: 03/29 13:02 Chief complaint: Patient states: Unable to urinate well with pain and dribbling for 1 ll1 day. Taking flomax as directed. Coronavirus screen: Vaccine status: Patient reports receiving the 2nd dose of the covid vaccine. Client denies travel out of the [place] in the last 14 days. At this time, the client does not indicate any symptoms associated with coronavirus-19. Ebola Screen: Patient denies travel to an Ebola-affected area in the 21 days before illness onset. Initial Sepsis Screen: Does the patient meet any 2 criteria? No. Patient's initial sepsis screen is negative. Does the patient have a suspected source of infection? Yes: Dysuria/Frequency/Urgency/UTI. Risk Assessment: Do you want to hurt yourself or someone else? Patient reports no desire to harm self or others. Onset of symptoms was March 28, 2021. 13:02 Method Of Arrival: Ambulatory ll1 13:02 Acuity: MADONNA 3 ll1 Triage Assessment: 13:10 General: Appears uncomfortable, Behavior is anxious. jg9 Historical: - Allergies: 13:03 No Known Drug Allergies; ll1 - PMHx: 13:03 Hypertension; Hypercholesterolemia; ll1 - PSHx: 13:03 None; ll1 - Immunization history:: Client reports receiving the 2nd dose of the Covid vaccine. - Social history:: Smoking status: Patient reports the use of cigarette tobacco products, smokes one-half pack cigarettes per day. Screenin:48 Abuse screen: Denies threats or abuse. Denies injuries from another. Nutritional jg9 screening: No deficits noted. Tuberculosis screening: No symptoms or risk factors identified. Fall Risk None identified. Assessment: 13:10 Pain: Complains of pain in pelvis Pain currently is 10 out of 10 on a pain scale. jg9 13:10 : Reports inability to void, since this morning. jg9 13:15 Reassessment: bladder scan pre villareal 999+ mL. jg9 13:35 Reassessment: Patient states feeling better. jg9 14:40 Reassessment: Patient states feeling better. 1800 mL of urine emptied from villareal bag. jg9 Pain: Denies pain. Vital Signs: 13:02 BP 174 / 83; Pulse 84; Resp 17; Temp 97.5; Pulse Ox 97% ; Weight 92.99 kg; Height 6 ft. ll1 1 in. (185.42 cm); Pain 9/10; 13:30 BP 150 / 72; Pulse 60; Resp 20; Pulse Ox 97% on R/A; jg9 14:30 BP 135 / 74; Pulse 57; Resp 14 S; Pulse Ox 98% on R/A; jg9 15:15 BP 130 / 90; Pulse 62; Resp 14 S; Pulse Ox 99% on R/A; jg9 13:02 Body Mass Index 27.05 (92.99 kg, 185.42 cm) ll1 ED Course: 12:46 Patient arrived in ED. as 12:46 Enrique Multani DO is Private Physician. as 13:00 Arm band placed on Patient placed in an exam room, on a stretcher. ll1 13:03 Anne Garcia, CORA is Primary Nurse. jg9 13:03 Triage completed. ll1 13:04 Wins[facility] Ortega [facility]C [facility]. kb 13:04 Titi Haynes MD is Attending Physician. kb 13:10 Patient has correct armband on for positive identification. Bed in low position. Call jg9 light in reach. Side rails up X 1. 13:34 Villareal cath inserted, using sterile technique, 18 Fr., by mn, balloon inflated, to jg9 gravity drainage, urine specimen collected. 13:51 CT Stone Protocol In Process Unspecified. EDMS 14:45 No apparent distress. Resting quietly. Awaiting radiology results. Awaiting disposition.jg9 15:20 No apparent distress. Resting quietly. Awaiting lab results. jg9 Administered Medications: No medications were administered Outcome: 15:24 Discharge ordered by . kb 16:00 Patient left the ED. ss Signatures: Dispatcher [employer] EDNC Winsome Ortega FNP-C FNP-Linsey Garcia Shelby, RN RN ss Anastasia Sharpy, RN RN ll1 Anne Garcia, RN RN jg9
--- NOTE | 2021-03-29 15:25 | EDPHYS ---
Physician Documentation [facility] Name: Giovany Carrasquillo Age: 65 yrs Sex: Male : 1955 Arrival Date: 03/29/2021 Time: 12:46 Bed 23 Private MD: [facility] ED Physician Titi Haynes HPI: 03/29 14:13 This 65 yrs old Black Male presents to ER via Ambulatory with complaints of Urinary kb Retention. 14:13 The patient has experienced similar episodes in the past, a few times. The patient has kb not recently seen a physician. 14:13 The patient presents with urinary symptoms, retention, unable to void, Last void was kb yesterday. Onset: The symptoms/episode began/occurred today. Modifying factors: The symptoms are alleviated by nothing, the symptoms are aggravated by nothing. Associated signs and symptoms: Pertinent positives: abdominal pain, Pertinent negatives: constipation, diarrhea, dysuria, fever, hematuria, nausea, vomiting. Severity of symptoms: At their worst the symptoms were moderate, in the emergency department the symptoms are unchanged. Pt reports he hasn't been able to urinate since last night. States this has happened before due to an enlarged prostate. States it happens when he doesn't take his flomax for a couple of days. Historical: - Allergies: 13:03 No Known Drug Allergies; ll1 - PMHx: 13:03 Hypertension; Hypercholesterolemia; ll1 - PSHx: 13:03 None; ll1 - Immunization history:: Client reports receiving the 2nd dose of the Covid vaccine. - Social history:: Smoking status: Patient reports the use of cigarette tobacco products, smokes one-half pack cigarettes per day. ROS: 14:12 Constitutional: Negative for fever, chills, and weight loss. kb 14:12 : Positive for difficulty urinating. 14:12 All other systems are negative. Exam: 14:12 Constitutional: This is a well developed, well nourished patient who is awake, alert, kb and in no acute distress. Head/Face: Normocephalic, atraumatic. ENT: Moist Mucous membranes Cardiovascular: Regular rate and rhythm with a normal S1 and S2. No gallops, murmurs, or rubs. No pulse deficits. Respiratory: Respirations even and unlabored. No increased work of breathing. Talking in full sentences Skin: Warm, dry with normal turgor. Normal color. MS/ Extremity: Pulses equal, no cyanosis. Neurovascular intact. Full, normal range of motion. Neuro: Awake and alert, GCS 15, oriented to person, place, time, and situation. Moves all extremities. Normal gait. Psych: Awake, alert, with orientation to person, place and time. Behavior, mood, and affect are within normal limits. 14:12 Abdomen/GI: Inspection: abdomen appears normal, Bowel sounds: normal, Palpation: soft, in all quadrants, moderate abdominal tenderness, in the suprapubic area. Vital Signs: 13:02 BP 174 / 83; Pulse 84; Resp 17; Temp 97.5; Pulse Ox 97% ; Weight 92.99 kg; Height 6 ft. ll1 1 in. (185.42 cm); Pain 9/10; 13:30 BP 150 / 72; Pulse 60; Resp 20; Pulse Ox 97% on R/A; jg9 14:30 BP 135 / 74; Pulse 57; Resp 14 S; Pulse Ox 98% on R/A; jg9 15:15 BP 130 / 90; Pulse 62; Resp 14 S; Pulse Ox 99% on R/A; jg9 13:02 Body Mass Index 27.05 (92.99 kg, 185.42 cm) ll1 MDM: 13:04 Patient medically screened. kb 14:10 Data reviewed: vital signs, nurses notes. Data interpreted: Pulse oximetry: on room air kb is 97 %. Interpretation: normal. 15:24 Counseling: I had a detailed discussion with the patient and/or guardian regarding: the kb historical points, exam findings, and any diagnostic results supporting the discharge/admit diagnosis, lab results, the need for outpatient follow up, a family practitioner, to return to the emergency department if symptoms worsen or persist or if there are any questions or concerns that arise at home. 03/29 13:04 Order name: Urine Microscopic Only; Complete Time: 15:23 kb 03/29 13:43 Order name: Urine Dipstick-Ancillary; Complete Time: 13:48 EDMS 03/29 13:04 Order name: Bladder Scanner; Complete Time: 13:34 kb 03/29 13:04 Order name: Urine Dipstick-Ancillary (obtain specimen); Complete Time: 14:45 kb 03/29 13:12 Order name: Lion; Complete Time: 13:34 kb 03/29 13:22 Order name: CT Stone Protocol; Complete Time: 14:11 kb 03/29 15:24 Order name: Leg Bag; Complete Time: 15:42 kb Administered Medications: No medications were administered Disposition Summary: 03/29/21 15:24 Discharge Ordered Location: Home kb Condition: Stable kb Diagnosis - Retention of urine, unspecified kb Followup: kb - With: Emergency Department - When: As needed - Reason: Worsening of condition Followup: kb - With: Private Physician - When: 2 - 3 days - Reason: Recheck today's complaints, Continuance of care, Re-evaluation by your physician Discharge Instructions: - Discharge Summary Sheet kb - Acute Urinary Retention, Male, [id number] kb Forms: - Medication Reconciliation Form kb - Thank You Letter kb - Antibiotic Education kb - Prescription Opioid Use kb Addendum: 03/31/2021 07:06 Co-signature as Attending Physician, Titi Haynes MD I agree with the assessment and c aguilera plan of care. Signatures: Dispatcher [employer] Winsome Cox, [employer]C [employer]-CkTiti Watson MD MD cha Lewis, Lynsay, RN RN ll1
[2021-03-29 16:07] VITALS: TEMP 97.5
[2021-03-29 16:11] VITALS: BP 130/90; O2SAT 99
== END 2021-03-29 16:00 | disposition home or self-care (01) ==
LOC: ER 12:45
DX: R33.9 Retention of urine, unspecified (principal); I10 Essential (primary) hypertension; F17.210 Nicotine dependence, cigarettes, uncomplicated
CPT/HCPCS: 51702; 74176; 76377; 81003; 81015; 99284

== ENCOUNTER 2021-05-08 10:09 | Emergency (ER) | payer OTHER ==
--- OUTSIDE RECORDS SUMMARY | 2021-05-08 10:13 | XMS REPORT | Continuity of Care Document ---
:1955 Author Organization [facility] t Address [address] [place] [address] Care Team Providers Name Role Phone Annalee Multani Attending Clinician Unavailable DONTA Attending Clinician Unavailable MATY Attending Clinician Unavailable Petra RUBIN Attending Clinician Unavailable Stan DOBBS Attending Clinician Unavailable Payers Payer Name Policy Type Policy Number Effective Date Expiration Date S hay CAROL/ANKITA [id number] 2019 MEDICARE ADVANTAGE 00:00:00 Problems This patient has no known problems. Allergies, Adverse Reactions, Alerts Allergy Allergy Status Severity Reaction(s) Onset Inactive Treating Comm ents Source Name Type Date Date Clinician NO KNOWN Drug Active [facility]ER[facility] Class [facility] of [facility] Medications This patient has no known medications. Procedures This patient has no known procedures. Encounters Start End Encounter Admission Attending Care Care Encounter Source Date/Time Date/Time Type Type Clinicians Facility Department ID 2021-04-12 Outpatient [facility] [id number] [facility] [address] 09:39:01 [facility] 2021-04-03 Outpatient Multani, [facility] [id number] [facility] 14:40:27 [facility] 2021-04-03 Outpatient Multani, [facility] [id number] [address] 14:17:15 [facility] 2021-04-112021-04-11 ambulatory [facility] [id number] [facility] 2021-04-11 2021-04-11 ambulatory [facility] [id number] [facility] 2021-04-09 2021-04-09 ambulatory [facility] [id number] [facility] 2021-04-03 2021-04-03 ambulatory [facility] [id number] [facility] 2021-04-01 2021-04-01 ambulatory [facility] [id number] [facility] 2021-04-01 2021-04-01 ambulatory [facility] [id number] [facility] 2020-10-02 2020-10-02 Outpatient R DONTA, [facility] [id number] Univers 15:00:00 15:00:00 ELIS [id number] [facility] 2020-10-02 2020-10-02 Outpatient R DONTA, [facility] [id number] Univers 15:00[facility]00 [facility]00[facility] 2020-09-20 Outpatient R DONTA, [facility] [id number] Univers 15:00:00 15:00:00 ELIS [id number] [facility] 2020-09-20 2020-09-20 Outpatient R DONTA, [facility] [id number] Univers 15:00:00 15:00:00 ELIS [facility] 2020-09-19 2020-09-19 Outpatient R DONTA, [facility] [id number] Univers 11:20:00 11:20:00 ELIS [id number] [facility] 2020-09-07 2020-09-07 Outpatient R DONTA, [facility] [id number] Univers 13:00:00 13:00:00 ELIS [id number] ity o f [facility] 2020-09-07 2020-09-07 Outpatient R DONTA, [facility] [id number] Univers 13:00:00 13:00:00 ELIS stewarty o f [facility] 2020-08-22 2020-08-22 Outpatient R DONTA, [facility] [id number] Univers 09:20:00 09:20:00 ELIS [id number] ity o f [facility] 2020-08-22 2020-08-22 Outpatient R DONTA, [facility] [id number] Univers 09:20:00 09:20:00 ELIS yang o f [facility] 2020-01-30 2020-01-30 Outpatient R ALZWERI, [facility] [id number] Univers 15:00:00 15:00:00 SANGEETA [id number] [facility] 2020-01-30 2020-01-30 Outpatient R ALZWERI, [facility] [id number] Univers [facility]:00[facility]00 [facility] 2020-01-02 Outpatient R GRAMM, [facility] [id number] Univers 13:15:00 13:15:00 FACUNDO [id number] [facility] 2020-01-02 2020-01-02 Outpatient R GRAMM, [facility] [id number] Univers 13:15:00 13:15:00 FACUNDO [facility] 2019-11-28 2019-11-28 Outpatient R ALZWERI, [facility] [id number] Univers 15:30:00 15:30:00 SANGEETA [id number] [facility] 2019-11-28 2019-11-28 Outpatient R ALZWERI, [facility] [id number] Univers 15:30:00 15:30:00 [facility] 2019-11-21 2019-11-21 Outpatient R [facility] [id number] Univers 13:00:00 13:00:00 [id number] [facility] 2019-11-21 2019-11-21 Outpatient R [facility] [id number] Univers 13:00:00 13:00:00 ity of [facility] 2019-10-27 2019-10-27 Outpatient R MATY [facility] [id number] Univers 15:30:00 15:30:00 SANGEETA ity [facility] 2019-10-27 2019-10-27 Outpatient R MATY [facility] [id number] Univers 15:30:00 15:30:00 SANGEETA ity [facility] 2019-10-12 2019-10-12 Outpatient R [facility] [id number] Univers 13:45:00 13:45:00 ity of [facility] 2019-10-12 2019-10-12 Outpatient R [facility] [id number] Univers 13:45:00 13:45:00 ity of [facility] 2019-10-10 2019-10-10 Outpatient R [facility] [id number] Univers 14:45:00 14:45:00 ity [facility] 2019-10-10 2019-10-10 Outpatient R DILIA, [facility] [id number] Univers 14:45:00 14:45:00 [facility] 2019-06-28 2019-06-28 Outpatient R DONTA, [facility] [id number] Univers 14:40:00 14:40:00 ELIS [id number] ity o f [facility] 2019-06-28 2019-06-28 Outpatient R DONTA, [facility] [id number] Univers 14:40:00 14:40:00 ELIS ity o f [facility] 2019-06-13 2019-06-13 Outpatient R MATY, [facility] [id number] Univers 13:45:00 13:45:00 SANGEETA ity [facility] 2019-06-13 2019-06-13 Outpatient R MONKIAErin, [facility] [id number] Univers 13:45:00 13:45:00 [facility] ity [facility] 2019-06-07 2019-06-07 Outpatient R DONTA, [facility] [id number] Univers 14:20:00 14:20:00 ELIS [id number] terryy o [facility] 2019-06-07 2019-06-07 [facility] [id number] Univers 14:20:00 14:20:00 ELIS yang o [facility] 2019-05-16 2019-05-16 Outpatient R [facility] [id number] Univers 15:00:00 15:00:00 [facility] 2019-05-16 2019-05-16 [facility] [id number] Univers 14:30:00 14:30:00 SANGEETA [facility] Results This patient has no known results.
--- NOTE | 2021-05-08 10:48 | EDPHYS ---
Physician Documentation [facility] Name: Giovany Carrasquillo Age: 65 yrs Sex: Male : 1955 Arrival Date: 05/08/2021 Time: 10:17 Bed 19 Private MD: ED Physician Tammy Rouse HPI: 05/08 10:44 This 65 yrs old Black Male presents to ER via Unassigned with complaints of Problem ma2 With Urinary Catheter. 10:44 65-year-old male with Lion cath for BPH, patient presents ER because he would like leg ma2 bag, patient does not want any testing, does not have any symptom. Historical: - Allergies: 10:45 No Known Allergies; ss - PMHx: 10:45 Hypercholesterolemia; Hypertension; ss - Immunization history:: Client reports receiving the 2nd dose of the Covid vaccine. - Social history:: Smoking status: Patient denies any tobacco usage or history of. ROS: 10:44 Constitutional: Negative for fever, chills, and weight loss. ma2 10:44 All other systems are negative. Exam: 10:44 Constitutional: This is a well developed, well nourished patient who is awake, alert, ma2 and in no acute distress. Chest/axilla: Normal chest wall appearance and motion. Nontender with no deformity. No lesions are appreciated. Cardiovascular: Regular rate and rhythm with a normal S1 and S2. No gallops, murmurs, or rubs. Normal PMI, no JVD. No pulse deficits. Respiratory: Lungs have equal breath sounds bilaterally, clear to auscultation and percussion. No rales, rhonchi or wheezes noted. No increased work of breathing, no retractions or nasal flaring. Abdomen/GI: Soft, non-tender, with normal bowel sounds. No distension or tympany. No guarding or rebound. No evidence of tenderness throughout. Male : Normal genitalia with no discharge or lesions. Vital Signs: 10:43 BP 147 / 63; Pulse 63; Resp 15; Temp 97.5(TE); Pulse Ox 98% on R/A; Weight 92.99 kg; ss Height 6 ft. 1 in. (185.42 cm); Pain 0/10; 10:43 Body Mass Index 27.05 (92.99 kg, 185.42 cm) MDM: 10:40 Patient medically screened. ma2 10:47 Data reviewed: vital signs. ma2 05/08 10:23 Order name: Basic Metabolic Panel ma2 05/08 10:23 Order name: IV Saline Lock ma2 05/08 10:23 Order name: Labs collected and sent ma2 05/08 10:23 Order name: Urine Dipstick-Ancillary (obtain specimen) ma2 Administered Medications: No medications were administered Disposition Summary: 05/08/21 10:47 Discharge Ordered Location: Home ma2 Condition: Stable ma2 Diagnosis - Encounter for follow-up examination after completed treatment for conditions other ma2 than malignant neoplasm Followup: ma2 - With: Private Physician - When: Tomorrow - Reason: If symptoms return Discharge Instructions: - Discharge Summary Sheet ma2 - Indwelling Urinary Catheter Care, Adult ma2 Forms: - Medication Reconciliation Form ma2 - Thank You Letter ma2 - Antibiotic Education ma2 - Prescription Opioid Use ma2 Signatures: Dispatcher [employer] Anne Vaz RN RN Tammy Rouse MD MD ma2
--- NOTE | 2021-05-08 10:48 | ER ---
Nurse's Notes [facility] Name: Giovany Carrasquillo Age: 65 yrs Sex: Male : 1955 Arrival Date: 05/08/2021 Time: 10:17 Bed 19 Private MD: Diagnosis: Encounter for follow-up examination after completed treatment for conditions other than malignant neoplasm Presentation: 05/08 10:43 Chief complaint: Patient states: urinary leg bag leaking. Needs to be replaced. ss Coronavirus screen: Client denies travel out of the [place] in the last 14 days. Ebola Screen: Patient denies exposure to infectious person. Patient denies travel to an Ebola-affected area in the 21 days before illness onset. Initial Sepsis Screen: Does the patient meet any 2 criteria? No. Patient's initial sepsis screen is negative. Does the patient have a suspected source of infection? No. Patient's initial sepsis screen is negative. Risk Assessment: Do you want to hurt yourself or someone else? Patient reports no desire to harm self or others. Onset of symptoms was May 08, 2021. 10:43 Method Of Arrival: Ambulatory ss 10:43 Acuity: MADONNA 5 ss Historical: - Allergies: 10:45 No Known Allergies; ss - PMHx: 10:45 Hypercholesterolemia; Hypertension; ss - Immunization history:: Client reports receiving the 2nd dose of the Covid vaccine. - Social history:: Smoking status: Patient denies any tobacco usage or history of. Screenin:16 Abuse screen: Denies threats or abuse. Denies injuries from another. Nutritional ww screening: No deficits noted. Tuberculosis screening: No symptoms or risk factors identified. Fall Risk None identified. Assessment: 11:15 General: Appears in no apparent distress. comfortable, Behavior is cooperative, ww appropriate for age. Pain: Denies pain. Neuro: No deficits noted. Level of Consciousness is awake, alert, obeys commands, Oriented to person, place, time, situation, Moves all extremities. Speech is normal. Cardiovascular: Denies chest pain, shortness of breath, Capillary refill < 3 seconds Patient's skin is warm and dry. Respiratory: Airway is patent Respiratory effort is even, unlabored, Respiratory pattern is regular, symmetrical. GI: No signs and/or symptoms were reported involving the gastrointestinal system. : Villareal in place let bag leaking. Changed leg bag. Patient cleaned legs. Dr. Boucher stated he does not want labs on patient and to change leg bag and can discharge and follow up with urology. Urine is clear. Derm: Skin is intact, Skin is pink, warm \T\ dry. Vital Signs: 10:43 BP 147 / 63; Pulse 63; Resp 15; Temp 97.5(TE); Pulse Ox 98% on R/A; Weight 92.99 kg; ss Height 6 ft. 1 in. (185.42 cm); Pain 0/10; 10:43 Body Mass Index 27.05 (92.99 kg, 185.42 cm) ED Course: 10:17 Patient arrived in ED. ds1 10:21 Tammy Rouse MD is Attending Physician. ma2 10:45 Triage completed. 10:45 Arm band placed on right wrist. 11:06 Karey García, RN is Primary Nurse. ww 11:16 Patient has correct armband on for positive identification. Bed in low position. Call ww light in reach. 11:16 No provider procedures requiring assistance completed. Patient did not have IV access ww during this emergency room visit. Administered Medications: No medications were administered Outcome: 10:47 Discharge ordered by . [facility] 11:16 Discharged to home ambulatory. ww 11:16 Condition: stable 11:16 Discharge instructions given to patient, Instructed on discharge instructions, follow up and referral plans. safety practices, villareal care Demonstrated understanding of instructions, follow-up care, medications. 11:17 Patient left the ED. ww Signatures: Mary Beth Yañez ds1 Anne Kent RN RN Tammy Rouse MD MD ma2 Wood, Whitney, RN RN
[2021-05-08 11:22] VITALS: BP 147/63; TEMP 97.5; O2SAT 98
== END 2021-05-08 11:17 | disposition home or self-care (01) ==
LOC: ER 10:09
DX: Z09 Encounter for follow-up examination after completed treatment for conditions other than malignant neoplasm (principal)
CPT/HCPCS: 99281

== ENCOUNTER 2021-05-14 10:39 | Day surgery (SDC) | payer OTHER ==
--- NOTE | 2021-05-09 12:18 | RAD REPORT ---
EXAM DESCRIPTION: RAD - Chest Pa And Lat (2 Views) - 05/09/2021 12:10 pm CLINICAL HISTORY: Pre op Chest pain. COMPARISON: Chest Single View dated 03/21/2019; Chest Pa And Lat (2 Views) dated 02/26/2019 FINDINGS: The lungs are mildly emphysematous but clear. The heart is upper limit of normal in size. No displaced fractures. IMPRESSION: Mild COPD. The USPSTF recommends annual screening for lung cancer with low-dose CT (LDCT) in adults aged 50 to 8 0 years who have a 20 pack-year smoking history and currently smoke or have quit within the past 15 y ears.
[2021-05-09 12:22] LABS: Absolute Lymphocytes (CBC) 1.6 K/uL (0.7-4.9); Hematocrit 37.6 % (39.6-49.0); Lymphocytes % 37.7 % (15.3-44.8); MPV 7.9 fL (7.6-11.3); Protime INR 1.06; RBC Red Blood Cell Count 4.25 M/uL (4.33-5.43)
[2021-05-09 12:44] LABS: Potassium 3.8 mmol/L (3.5-5.1)
--- NOTE | 2021-05-10 11:35 | EKG ---
Test Date: 2021-05-09 Test Time: 11:49:52 Jawbone Puller: ALEXIS MEASUREMENT RESULTS: Intervals: Rate: 56 CO: 114 QRSD: 84 QT: 442 QTc: 426 [place]: P: -13 CO: 114 QRS: 67 T: 63 INTERPRETIVE STATEMENTS: Sinus bradycardia Otherwise normal ECG Compared to ECG 03/21/2019 13:33:25 T-wave abnormality no longer present Possible ischemia no longer present Electronically Signed On 05-10-21 11:29:24 WOOD TYPE FINISHER by Xander Castillo
[~2021-05-14 10:39] MED LIST: Gentamicin Inj 200 MG in NA CHLORIDE 0.9% 100 ML IVPB SCH
[2021-05-14] MEDS ORDERED: Ringers Lactate 1,000 ML IV ONE (11:13)
[2021-05-14] MEDS ORDERED: ACETAMINOPHEN 500 MG TAB ONE (13:03)
[2021-05-14] MEDS ORDERED: FENTANYL CITR 100 MCG/2 ML ONE (13:05)
[2021-05-14] MEDS ORDERED: propofoL 200 MG/20 ML VIAL IV ONE (13:05)
[2021-05-14] MEDS ORDERED: LIDOCAINE 1% MPF 5 ML VIAL ONE (13:06)
[2021-05-14] MEDS: AMPICILLIN SODIUM 2 GM in NA CHLORIDE 0.9% 100 ML IVPB SCH ×2 (13:25→13:30)
[2021-05-14] MEDS ORDERED: KETOROLAC 30 MG/ML INJ ONE (13:44)
[2021-05-14] MEDS ORDERED: dexAMETHasone 10 MG/ML VIAL ONE (13:44)
[2021-05-14] MEDS ORDERED: ONDANSETRON 4 MG/2 ML VIAL ONE (13:45)
[2021-05-14] MEDS ORDERED: GLYCOPYRROLATE 0.2 MG/ML SYR ONE (14:31)
[2021-05-14] MEDS: Ringers Lactate 1,000 ML IV ONE ×2 (14:51→15:17)
[2021-05-14] MEDS ORDERED: OPIUM/BELLADONNA SUPPOS (30-16.2 MG) PR ONE (15:40)
[2021-05-14] MEDS ORDERED: CODEINE 30MG/APAP 300MG TAB ONE (16:37)
[2021-05-14 16:50] VITALS: BP 128/62; TEMP 98; O2SAT 93
--- NOTE | 2021-05-16 07:09 | OP ---
Surgeon: ALYSSA WOMACK Preoperative Diagnosis: BPH with urinary retention. Postoperative Diagnosis: BPH with urinary retention. Principal Procedure: Bipolar transurethral resection of the prostate. Indication For Procedure: Mr. Carrasquillo presented to the Urology Clinic having been seen in the [facility] Department previously with acute urinary retention requiring a catheter being placed. He underw ent cystoscopic evaluation revealing massive 4 lobar hypertrophy with intravesical projection of a me marilou lobe obscuring the ureteral orifice bilaterally. Despite attempt at a voiding trial and use of alpha blockers, he was still unable to void; so a catheter had to be reinserted. He presents today f or definitive management of his obstruction via bipolar TURP. Procedure In Detail: The patient was consented in the preoperative holding area before being transfe rred to operative suite, where general anesthesia was induced. He had previously been given Augmenti n for antimicrobial prophylaxis given streptococcus found in his urine associated with the catheter. He was also given ampicillin 2 g and gentamicin IV antimicrobial prophylaxis perioperatively. Pneum oboots were provided for DVT prophylaxis. He was placed in the lithotomy position, padded and secure d to the table appropriately. His genitalia were prepped using Hibiclens and draped in standard fash ion. The case was begun using a visual obturator and the 26-Pashto resectoscope to traverse the uret hra and enter the bladder. As previously indicated, massive 4 lobar hypertrophy with intravesical pr ojection and a median lobe obscuring the ureteral orifices was noted. The bladder was also trabecula susan with some cellule and small diverticula formation. As a result, I identified the right ureteral orifice and the median lobe abutting it, and I carefully resected the portion of the median lobe over lying the right ureteral orifice. I performed a similar procedure for the portion of the median lobe overlying the left ureteral orifice and resected it down to the bladder neck. The remainder of the median lobe centrally was then resected down to the level of the bladder neck. I then continued the bladder neck resection to create a nice trough from 4 p.m. to 8 p.m. I then continued this resection from the bladder neck all the way down the median bar to the level of the verumontanum. Once a nice trough had been created, I then continued the resection into the left lateral lobe, resecting along the entirety of the length of the prostatic urethra, which was at least 4 or 5 cm in length. I resec susan all the way from the bladder neck to the level of the verumontanum and resected any overlapping l ateral lobar hypertrophy at the apex until the lateral lobes were no longer touching or overlapping. A similar resection was performed on the right lateral lobe of the prostate and this was continued t o the anterior zone of the prostate. The bladder neck portion was resected all the way to the apex. In the end, after a massive resection of several g of tissue, there was a nice trough created from t he verumontanum in through the bladder neck. The ureteral orifices were uninjured and intact. All p rostate chips had been Ellik evacuated at multiple occasions throughout the process, and fulguration was performed throughout the process. Once all prostate chips have been completely evacuated with th e bladder decompressed, I carefully fulgurated the entirety of the prostatic fossa until there was no oozing noted. Then, with the prostatic fossa completely hemostatic, I again backfilled the bladder and removed the resectoscope. I then passed a 24-Pashto 3-way Lion catheter into his bladder with e ase and I placed 50 cc of sterile water in the balloon. The catheter was placed to moderate traction , and the patient was taken out of the lithotomy position. He was then awakened from general anesthe ligia, transferred to a stretcher, and then transferred to the recovery room in good condition. Complications: None. Discharge Disposition: He should follow up in the Urology Clinic on Thursday for a voiding trial and w ill continue his Augmentin through the catheter removal. Subsequent followup may be established in 3 -6 months. GINO/LORI Voice ID: [id number] Report ID: [id number]
== END 2021-05-14 17:45 | disposition home or self-care (01) ==
LOC: OR 10:39
PROVIDERS: ATTEND Urology
PROC: 0VT08ZZ Resection of Prostate, Via Natural or Artificial Opening Endoscopic (ICD-10-PCS; principal; 2021-05-14 11:45)
DX: N40.1 Benign prostatic hyperplasia with lower urinary tract symptoms (principal)
CPT/HCPCS: 93005; 87088; 85025; 87086; 80048; 36415; 85610; 88305; 71046; 52601; G0103; U0002; J2704; J1580; J3010; J1100; J7120 ×2; J2405; J0290

== ENCOUNTER 2021-10-16 01:47 | Emergency (ER) | payer OTHER ==
--- OUTSIDE RECORDS SUMMARY | 2021-10-16 01:50 | XMS REPORT | Continuity of Care Document ---
:1955 Author Organization [facility] t Address [address] [place] [address] Care Team Providers Name Role Phone Enrique Multani Attending Clinician Unavailable ELIS LONGO Attending Clinician Unavailable SANGEETA RUTLEDGE Attending Clinician Unavailable FACUNDO RUBIN Attending Clinician Unavailable DIPAK DOBBS Attending Clinician Unavailable Payers Payer Name Policy Type Policy Number Effective Date Expiration Date S soniakandi CAROL/ANKITA [id number] 2019 MEDICARE ADVANTAGE 00:00:00 Problems This patient has no known problems. Allergies, Adverse Reactions, Alerts Allergy Allergy Status Severity Reaction(s) Onset Inactive Treating Comm ents Source Name Type Date Date Clinician NO KNOWN Drug Active [facility] ALLERGIE Class ity of S [facility] Medications This patient has no known medications. Procedures This patient has no known procedures. Encounters Start End Encounter Admission Attending Care Care Encounter Source Date/Time Date/Time Type Type Clinicians Facility Department ID 2021-08-02 Outpatient Multani, [facility] [id number] Common 11:38:01 Enrique [facility] 2021-04-12 Outpatient Rangel [facility] [id number] Common 09:39:01 Enrique [facility] 2021-04-03 Outpatient Rangel [facility] [id number] Common 14:40:27 Enrique [facility] 2021-04-03 Outpatient Multani, [facility] [id number] Common 14:17:15 [facility] [id number] [facility] 2021-04-11 2021-04-11 ambulatory [facility] [id number] Common 00:00:00 00:00:00 [facility] 2021-04-11 2021-04-11 ambulatory [facility] [id number] Common 00:00:00 00:00:00 [facility] 2021-04-09 2021-04-09 ambulatory [facility] [id number] Common 00:00:00 00:00:00 [facility] 2021-04-03 2021-04-03 ambulatory [facility] [id number] Common 00:00:00 00:00:00 [facility] 2021-04-01 2021-04-01 ambulatory [facility] [id number] Common 00:00:00 00:00:00 [facility] 2021-04-01 2021-04-01 ambulatory [facility] [id number] Common 00:00:00 00:00:00 [facility] 2020-10-02 2020-10-02 Outpatient R DONTA, [facility] [id number] Univers 15:00:00 15:00:00 ELIS [id number] [facility] 2020-10-02 2020-10-02 Outpatient R DONTA, [facility] [id number] Univers 15:00:00 15:00:00 ELIS [facility] 2020-09-20 2020-09-20 Outpatient R DONTA, [facility] [id number] Univers 15:00:00 15:00:00 ELIS [id number] [facility] 2020-09-20 2020-09-20 Outpatient R DONTA, [facility] [id number] Univers 15:00:00 15:00:00 ELIS [facility] 2020-09-19 2020-09-19 Outpatient R DONTA, [facility] [id number] Univers 11:20:00 11:20:00 ROGELIOSHELBI [id number] ity o f [facility] 2020-09-07 2020-09-07 Outpatient R DONTA, [facility] [id number] Univers 13:00:00 13:00:00 ELIS [id number] ity o f [facility] 2020-09-07 2020-09-07 Outpatient R DONTA, [facility] [id number] Univers 13:00:00 13:00:00 ELIS stewarty o f [facility] 2020-08-22 2020-08-22 Outpatient R DONTA, [facility] [id number] Univers 09:20:00 09:20:00 ELIS [id number] ity o [facility] 2020-08-22 2020-08-22 Outpatient R DONTA, [facility] [id number] Univers 09:20:00 09:20:00 RIGOBERTOFRANCISCO yang o [facility] 2020-01-30 2020-01-30 Outpatient R ALZANNAI, [facility] [id number] Univers 15:00:00 15:00:00 SANGEETA [id number] [facility] 2020-01-30 2020-01-30 Outpatient R ALZANNAI, [facility] [id number] Univers 15:00:00 15:00:00 [facility] 2020-01-02 2020-01-02 Outpatient R GRAMM, [facility] [id number] Univers 13:15:00 13:15:00 FACUNDO [id number] [facility] 2020-01-02 2020-01-02 Outpatient R GRAMM, [facility] [id number] Univers 13:15:00 13:15:00 FACUNDO [facility] 2019-11-28 2019-11-28 Outpatient R ALZWERI, [facility] [id number] Univers 15:30:00 15:30:00 SANGEETA [id number] [facility] 2019-11-28 2019-11-28 Outpatient R ALZANNAI, [facility] [id number] Univers 15:30:00 [facility]:30:[facility] 2019-11-21 Outpatient R [facility] [id number] Univers 13:00:00 13:00:00 [id number] ity of [facility] 2019-11-21 2019-11-21 Outpatient R [facility] [id number] Univers 13:00:00 13:00:00 ity of [facility] 2019-10-27 2019-10-27 Outpatient R MATY, [facility] [id number] Univers 15:30:00 15:30:00 SANGEETA ity of [facility] 2019-10-27 2019-10-27 Outpatient R MATY [facility] [id number] Univers 15:30:00 15:30:00 SANGEETA ity of [facility] 2019-10-12 2019-10-12 Outpatient R [facility] [id number] Univers 13:45:00 13:45:[address] [facility] 2019-10-12 2019-10-12 Outpatient R [facility] [id number] Univers 13:45:00 13:45:00 ity of [facility] 2019-10-10 2019-10-10 Outpatient R [facility] [id number] Univers 14:45:00 14:45:00 ity of [facility] 2019-10-10 2019-10-10 Outpatient R DILIA [facility] [id number] Univers 14:45:00 14:45:[address] [facility] 2019-06-28 2019-06-28 Outpatient R DONTA, [facility] [id number] Univers 14:40:00 14:40:00 ELIS [id number] ity o f [facility] 2019-06-28 2019-06-28 Outpatient R DONTA, [facility] [id number] Univers 14:40:00 14:40:00 ELIS ity o f [facility] 2019-06-13 2019-06-13 Outpatient R MATY [facility] [id number] Univers 13:45:00 13:45:00 SANGEETA ity of [facility] 2019-06-13 2019-06-13 Outpatient R MATY [facility] [id number] Univers 13:45:00 13:45:00 SANGEETA [facility] 2019-06-07 2019-06-07 Outpatient R DONTA [facility] [id number] Univers 14:20:00 14:20:00 ELIS [id number] terry o [facility] 2019-06-07 2019-06-07 [facility] [id number] Univers 14:20:00 14:20:00 ELIS yang [facility] 2019-05-16 2019-05-16 Outpatient R [facility] [id number] Univers 15:00:00 15:00:00 [facility] 2019-05-16 2019-05-16 [facility] [id number] Univers 14:30:00 14:30:00 [facility] Results This patient has no known results.
[2021-10-16] MEDS ORDERED: HYDROCODONE/APAP 10/325 TAB ONE (02:20)
[2021-10-16] MEDS ORDERED: IBUPROFEN 400 MG TAB ONE (02:20)
--- NOTE | 2021-10-16 03:29 | ER ---
Nurse's Notes [facility] Name: Giovany Carrasquillo Age: 66 yrs Sex: Male : 1955 Arrival Date: 10/16/2021 Time: 01:51 Bed 5 Private MD: Diagnosis: Fracture of calcaneus-left, acute, closed Presentation: 10/16 02:07 Chief complaint: Patient states: I was climbing a fence and I fell and came down on my kd3 ankle wrong and now it is swelling and it hurts. I cannot put pressure or weight down on my foot. Coronavirus screen: Vaccine status: Patient reports receiving the 1st dose of the Covid vaccine. Ebola Screen: No symptoms or risks identified at this time. Initial Sepsis Screen: Does the patient meet any 2 criteria? No. Patient's initial sepsis screen is negative. Does the patient have a suspected source of infection? No. Patient's initial sepsis screen is negative. Risk Assessment: Do you want to hurt yourself or someone else? Patient reports no desire to harm self or others. Onset of symptoms was October 16, 2021. 02:07 Method Of Arrival: Wheelchair kd3 02:07 Acuity: MADONNA 3 kd3 Triage Assessment: 02:08 General: Appears in no apparent distress. Behavior is calm, cooperative. Pain: kd3 Complains of pain in left medial ankle. Musculoskeletal: Circulation, motion, and sensation intact. Swelling present in left medial ankle. Historical: - Home Meds: 02:08 blood pressure medicine [Active]; Flomax Oral [Active]; kd3 - PMHx: 02:08 Hypercholesterolemia; Hypertension; kd3 - Immunization history:: Adult Immunizations up to date, Client reports receiving the Ward \T\ Ward single-dose vaccine. - Social history:: Smoking status: unknown. - Family history:: not pertinent. - Hospitalizations: : No recent hospitalization is reported. Screenin:09 Abuse screen: Denies threats or abuse. Denies injuries from another. Nutritional kd3 screening: No deficits noted. Tuberculosis screening: No symptoms or risk factors identified. Fall Risk Gait- Weak (10 pts.). Assessment: 02:16 General: see triage . kd3 Vital Signs: 02:06 BP 162 / 92; Pulse 71; Resp 18; Temp 98.0(O); Pulse Ox 100% ; Weight 92.99 kg; Height 6 kd3 ft. 1 in. (185.42 cm); Pain 6/10; 02:06 Body Mass Index 27.05 (92.99 kg, 185.42 cm) kd3 ED Course: 01:51 Patient arrived in ED. bp1 01:51 Apolinar Barbour MD is Attending Physician. rn 02:06 Polly Black, CORA is Primary Nurse. kd3 02:08 Triage completed. kd3 02:08 Arm band placed on right wrist. kd3 02:10 Patient has correct armband on for positive identification. Bed in low position. kd3 02:20 XRAY Ankle LEFT 3 view In Process Unspecified. EDMS 03:28 Santo Greenwood MD is Referral Physician. rn 03:52 Orthoglass splint: Posterior short lleg splint applied on left leg. stirrup splint ds4 applied on left leg. Administered Medications: 02:15 Drug: [place] (HYDROcodone-acetaminophen) 10 mg-325 mg 1 tabs Route: PO; kd3 04:08 Follow up: Response: No adverse reaction kd3 02:15 Drug: Motrin (ibuprofen) 800 mg Route: PO; kd3 04:08 Follow up: Response: No adverse reaction kd3 Medication: 02:09 VIS not applicable for this client. kd3 Outcome: 03:29 Discharge ordered by . rn 04:08 Patient left the ED. kd3 Signatures: Dispatcher [employer] EDMS Apolinar Barbour MD MD rn Swanson, Donovan ds4 Misty Barrios bp1 Polly Black RN RN kd3
--- NOTE | 2021-10-16 03:29 | EDPHYS ---
Physician Documentation [facility] Name: Giovany Carrasquillo Age: 66 yrs Sex: Male : 1955 Arrival Date: 10/16/2021 Time: 01:51 Bed 5 Private MD: ED Physician Apolinar Barbour HPI: 10/16 02:01 This 66 yrs old Black Male presents to ER via Unassigned with complaints of Ankle rn Injury. 02:01 The patient presents with decreased range of motion, an injury, pain, swelling. The rn complaints affect the left ankle. Onset: The symptoms/episode began/occurred just prior to arrival. Associated signs and symptoms: Pertinent positives: swelling, Pertinent negatives: fever, warmth, weakness. Modifying factors: The symptoms are alleviated by nothing, the symptoms are aggravated by weight bearing, movement. Severity of symptoms: At their worst the symptoms were moderate, in the emergency department the symptoms are unchanged. The patient has not experienced similar symptoms in the past. The patient has not recently seen a physician. Pt reports jumped off fence, hurt only left ankle, no other injury, hurts to bear weight and walk. . Historical: - Home Meds: 02:08 blood pressure medicine [Active]; Flomax Oral [Active]; kd3 - PMHx: 02:08 Hypercholesterolemia; Hypertension; kd3 - Immunization history:: Adult Immunizations up to date, Client reports receiving the Ward \T\ Ward single-dose vaccine. - Social history:: Smoking status: unknown. - Family history:: not pertinent. - Hospitalizations: : No recent hospitalization is reported. ROS: 02:01 Constitutional: Negative for fever, chills, and weight loss, Neck: Negative for injury, rn pain, and swelling, Cardiovascular: Negative for chest pain, palpitations, and edema, Respiratory: Negative for shortness of breath, cough, wheezing, and pleuritic chest pain, Abdomen/GI: Negative for abdominal pain, nausea, vomiting, diarrhea, and constipation, Back: Negative for injury and pain, MS/Extremity: + left ankle injury and pain Skin: Negative for injury, rash, and discoloration, Neuro: Negative for headache, weakness, numbness, tingling, and seizure. Exam: 02:01 Constitutional: This is a well developed, well nourished patient who is awake, alert, rn in wheelchair and appears in mild pain Head/Face: Normocephalic, atraumatic. Cardiovascular: Regular rate and rhythm. No pulse deficits. Respiratory: No increased work of breathing, no retractions or nasal flaring. Skin: Warm, dry with normal turgor. Normal color with no rashes, no lesions, and no evidence of cellulitis. MS/ Extremity: Pulses equal, no cyanosis. Neurovascular intact. No tenderness of knee or proximal tib/fib. No tenderness medial malleolus/distal tibia/foot. + mild tenderness with swelling left lateral malleolus. Vital Signs: 02:06 BP 162 / 92; Pulse 71; Resp 18; Temp 98.0(O); Pulse Ox 100% ; Weight 92.99 kg; Height 6 kd3 ft. 1 in. (185.42 cm); Pain 08/16; 02:06 Body Mass Index 27.05 (92.99 kg, 185.42 cm) kd3 MDM: 01:51 Patient medically screened. rn 03:27 Differential diagnosis: fracture, sprain, ligamentous injury. Data reviewed: vital rn signs, nurses notes, radiologic studies, plain films, and as a result, I will discharge patient. Counseling: I had a detailed discussion with the patient and/or guardian regarding: the historical points, exam findings, and any diagnostic results supporting the discharge/admit diagnosis, radiology results, the need for outpatient follow up, to return to the emergency department if symptoms worsen or persist or if there are any questions or concerns that arise at home. Response to treatment: the patient's symptoms have mildly improved after treatment, and as a result, I will discharge patient. Special discussion: I discussed with the patient/guardian in detail that at this point there is no indication for admission to the hospital. It is understood, however, that if the symptoms persist or worsen the patient needs to return immediately for re-evaluation. 10/16 02:01 Order name: XRAY Ankle LEFT 3 view rn 10/16 03:29 Order name: Splint - Ankle: Posterior; Complete Time: 03:51 rn 10/16 03:29 Order name: Splint - Ankle: Orthoglass: Stirrup; Complete Time: 03:51 rn 10/16 03:32 Order name: Crutches; Complete Time: 04:08 rn Administered Medications: 02:15 Drug: [place] (HYDROcodone-acetaminophen) 10 mg-325 mg 1 tabs Route: PO; kd3 04:08 Follow up: Response: No adverse reaction kd3 02:15 Drug: Motrin (ibuprofen) 800 mg Route: PO; kd3 04:08 Follow up: Response: No adverse reaction kd3 Disposition Summary: 10/16/21 03:29 Discharge Ordered Location: Home rn Problem: new rn Symptoms: have improved rn Condition: Stable rn Diagnosis - Fracture of calcaneus - left, acute, closed rn Followup: rn - With: Santo Greenwood MD - When: As needed - Reason: Recheck today's complaints, Re-evaluation by your physician Discharge Instructions: - Discharge Summary Sheet rn - Calcaneal Fracture Repair Surgery rn - Cast or Splint Care, Adult rn Forms: - Medication Reconciliation Form rn - Thank You Letter rn - Antibiotic equine internship - Prescription Opioid Use rn Prescriptions: - Tramadol 50 mg Oral Tablet - take 1 tablet by ORAL route every 8 hours as needed; 12 tablet; Refills: 0, rn Product Selection Permitted Signatures: Dispatcher [employer] Apolinar White MD MD rn Doucette, Kyli, RN RN kd3
[2021-10-16 04:14] VITALS: BP 162/92; TEMP 98; O2SAT 100
--- NOTE | 2021-10-16 11:06 | RAD REPORT ---
EXAM DESCRIPTION: RAD - Ankle Left 3 View - 10/16/2021 2:19 am CLINICAL HISTORY: 66 years Male, Pain COMPARISON: None. FINDINGS: There are irregular linear lucencies in the calcaneus suggestive of an acute, comminuted f racture without significant displacement. No dislocation. There is a 1.7 cm osseous excrescence proje cting from the medial aspect of the distal tibial metaphysis which could represent a small osteochond amy. Soft tissue swelling is present. IMPRESSION: Findings suggestive of an acute, comminuted fracture of the calcaneus Electronically signed by: Grant Jones MD 10/16/2021 3:25 AM CDT Due to temporary technical issues with the PACS/Fluency reporting system, reports are being signed by the in house radiologists without review as a courtesy to insure prompt reporting. The interpreting radiologist is fully responsible for the content of the report.
== END 2021-10-16 04:08 | disposition home or self-care (01) ==
LOC: ER 01:47
PROC: 2W3RX1Z Immobilization of Left Lower Leg using Splint (ICD-10-PCS; principal; 2021-10-16)
DX: S92.002A Unspecified fracture of left calcaneus, initial encounter for closed fracture (principal); E78.00 Pure hypercholesterolemia, unspecified; I10 Essential (primary) hypertension
CPT/HCPCS: 99283

== ENCOUNTER 2021-10-17 12:12 | Emergency (ER) | payer OTHER ==
--- OUTSIDE RECORDS SUMMARY | 2021-10-17 12:15 | XMS REPORT | Continuity of Care Document ---
:1955 Author Organization [facility] t Address [address] [place] [address] Care Team Providers Name Role Phone Enrique Multani Attending Clinician Unavailable ELIS LONGO Attending Clinician Unavailable SANGEETA RUTLEDGE Attending Clinician Unavailable FACUNDO RUBIN Attending Clinician Unavailable DIPAK DOBBS Attending Clinician Unavailable Payers Payer Name Policy Type Policy Number Effective Date Expiration Date S soniakandi CAROL/ANKITA [id number] 2019 MEDICARE ADVANTAGE 00:00:00 Problems This patient has no known problems. Allergies, Adverse Reactions, Alerts Allergy Allergy Status Severity Reaction(s) Onset Inactive Treating Comm ents Source Name Type Date Date Clinician NO KNOWN Drug Active [facility] ALLERGIE Class ity of [facility] Medications This patient has no known medications. Procedures This patient has no known procedures. Encounters Start End Encounter Admission Attending Care Care Encounter Source Date/Time Date/Time Type Type Clinicians Facility Department ID 2021-08-02 Outpatient Multani, [facility] [id number] Common 11:38:01 Enrique [facility] 2021-04-12 Outpatient Multani, [facility] [id number] Common 09:39:01 Enrique [facility] 2021-04-03 Outpatient Rangel [facility] [id number] Common 14:40:27 Enrique [facility] 2021-04-03 Outpatient Multani, [facility] [id number] Common 14:17:15 Enrique [id number] [facility] 2021-04-11 2021-04-11 ambulatory [facility] [id number] Common 00:00:00 00:00:00 [facility] 2021-04-11 2021-04-11 ambulatory [facility] [id number] Common 00:00:00 00:00:00 [facility] 2021-04-09 2021-04-09 ambulatory [facility] [id number] Common 00:00:00 00:00:00 [facility] 2021-04-03 2021-04-03 ambulatory [facility] [id number] Common 00:00:00 00:00:00 [facility] 2021-04-01 2021-04-01 ambulatory [facility] [id number] Common 00:00:00 00:00:00 [facility] 2021-04-01 2021-04-01 ambulatory [facility] [id number] Common 00:00:00 00:00:00 [facility] 2020-10-02 2020-10-02 Outpatient R DONTA, [facility] [id number] Univers 15:00:00 15:00:00 [id number] 2020-10-02 Outpatient R DONTA, [facility] [id number] Univers 15:00:00 15:00:00 ELIS yang [facility] 2020-09-20 2020-09-20 Outpatient R DONTA, [facility] [id number] Univers 15:00:00 15:00:00 [facility] [id number]-09[facility]20 2020-09-20 Outpatient R DONTA, [facility] [id number] Univers 15:00:00 15:00:00 ELIS yang [facility] 2020-09-19 2020-09-19 Outpatient R DONTA, [facility] [id number] Univers 11:20:00 11:20:00 ROGELIOSHELBI [id number] ity o [facility] 2020-09-07 2020-09-07 Outpatient R DONTA, [facility] [id number] Univers 13:00:00 13:00:00 ELIS [id number] ity o [facility] 2020-09-07 2020-09-07 Outpatient R DONTA, [facility] [id number] Univers 13:00:00 13:00:00 ELIS stewarty o [facility] 2020-08-22 2020-08-22 Outpatient R DONTA, [facility] [id number] Univers 09:20:00 09:20:00 RIGOBERTOFRANCISCO [id number] ity o [facility] 2020-08-22 2020-08-22 Outpatient R DONTA, [facility] [id number] Univers 09:20:00 09:20:00 ELIS yang o [facility] 2020-01-30 2020-01-30 Outpatient R ALZWERI, [facility] [id number] Univers 15:00:00 15:00:00 [facility] [id number] [facility] 2020-01-30 2020-01-30 Outpatient R ALZANNAI, [facility] [id number] Univers 15:00:00 15:00:00 [facility] 2020-01-02 2020-01-02 Outpatient R GRAMM, [facility] [id number] Univers 13:15:00 13:15:00 FACUNDO [id number] [facility] 2020-01-02 2020-01-02 Outpatient R GRAMM, [facility] [id number] Univers 13:15:00 13:15:00 FACUNDO [facility] 2019-11-28 2019-11-28 Outpatient R ALZWERI, [facility] [id number] Univers 15:30:00 15:30:00 [facility] [id number] [facility] 2019-11-28 2019-11-28 Outpatient R ALZWERI, [facility] [id number] Univers 15:30:00 15:30:00 [facility] 2019-11-21 2019-11-21 Outpatient R [facility] [id number] Univers 13:00:00 13:00:00 [id number] ity of [facility] 2019-11-21 2019-11-21 Outpatient R [facility] [id number] Univers 13:00:00 13:00:00 ity of [facility] 2019-10-27 2019-10-27 Outpatient R MATY [facility] [id number] Univers 15:30:00 15:30:00 SANGEETA [facility] 2019-10-27 2019-10-27 [facility] [id number] Univers 15:30:00 15:30:00 SANGEETA ity of [facility] 2019-10-12 2019-10-12 Outpatient R [facility] [id number] Univers 13:45:00 13:45:00 ity of [facility] 2019-10-12 2019-10-12 Outpatient R [facility] [id number] Univers 13:45:00 13:45:00 ity of [facility] 2019-10-10 2019-10-10 Outpatient R [facility] [id number] Univers 14:45:00 14:45:00 [facility]y of [facility] 2019-10-10 2019-10-10 Outpatient R DOBBS, [facility] [id number] Univers 14:45:00 14:45:00 DIPAK ity of [facility] 2019-06-28 2019-06-28 Outpatient R DONTA, [facility] [id number] Univers 14:40:00 14:40:00 ELIS [id number] ity o [facility] 2019-06-28 2019-06-28 Outpatient R DONTA, [facility] [id number] Univers 14:40:00 14:40:00 ELIS ity o [facility] 2019-06-13 2019-06-13 Outpatient R MATY, [facility] [id number] Univers 13:45:00 13:45:00 SANGEETA ity of [facility] 2019-06-13 2019-06-13 Outpatient R MATY, [facility] [id number] Univers 13:45:00 13:45:[facility]07 2019-06-07 Outpatient R DONTA, [facility] [id number] Univers 14:20:00 14:20:00 ELIS [id number] terry o [facility] 2019-06-07 2019-06-07 [facility] [id number] Univers 14:20:00 14:20:00 ELIS yang [facility] 2019-05-16 2019-05-16 Outpatient R [facility] [id number] Univers 15:00:00 15:00:00 [facility] 2019-05-16 2019-05-16 [facility] [id number] Univers 14:30:00 14:30:00 [facility] Results This patient has no known results.
--- NOTE | 2021-10-17 12:38 | ER ---
Nurse's Notes [facility] Name: Giovany Carrasquillo Age: 66 yrs Sex: Male : 1955 Arrival Date: 10/17/2021 Time: 12:15 Bed Treatment Private MD: Diagnosis: Fracture of calcaneus-10/16/21 Presentation: 10/17 12:19 Chief complaint: EMS states: patient was just seen here yesterday for a broken ankle ap3 and the patient states he fell on it again today and is having an increase in pain. He keeps asking for pain medication and seems altered. Coronavirus screen: Vaccine status: Patient reports receiving the 2nd dose of the covid vaccine. Patient reports receiving the 1st dose of the Covid vaccine. Ebola Screen: Patient negative for fever greater than or equal to 101.5 degrees Fahrenheit, and additional compatible Ebola Virus Disease symptoms. Initial Sepsis Screen: Does the patient meet any 2 criteria? No. Patient's initial sepsis screen is negative. Does the patient have a suspected source of infection? No. Patient's initial sepsis screen is negative. Risk Assessment: Do you want to hurt yourself or someone else? Patient reports no desire to harm self or others. Onset of symptoms was October 17, 2021. 12:19 Method Of Arrival: EMS: [facility] ap3 12:19 Acuity: MADONNA 3 ap3 Triage Assessment: 12:20 General: Appears in no apparent distress. well groomed, well developed, Behavior is ap3 calm, cooperative, drowsy. Pain: Complains of pain in left foot Pain does not radiate. Pain currently is 5 out of 10 on a pain scale. EENT: No deficits noted. No signs and/or symptoms were reported regarding the EENT system. Neuro: Level of Consciousness is awake, lethargic, Oriented to person, place, time, situation, Moves all extremities. Speech is slurred, Facial symmetry appears normal. Cardiovascular: No deficits noted. Respiratory: No deficits noted. GI: No deficits noted. No signs and/or symptoms were reported involving the gastrointestinal system. : No deficits noted. No signs and/or symptoms were reported regarding the genitourinary system. Derm: No deficits noted. No signs and/or symptoms reported regarding the dermatologic system. Musculoskeletal: No deficits noted. No signs and/or symptoms reported regarding the musculoskeletal system. Historical: - Allergies: 13:04 No Known Allergies; jl7 - Home Meds: 12:20 blood pressure medicine [Active]; Flomax Oral [Active]; ap3 - PMHx: 12:20 Hypercholesterolemia; Hypertension; ap3 - Immunization history:: Adult Immunizations up to date. - Social history:: Smoking status: Patient/guardian denies using street drugs, IV drugs, tobacco products. Screenin:05 Abuse screen: Denies threats or abuse. Denies injuries from another. Nutritional jl7 screening: No deficits noted. Tuberculosis screening: No symptoms or risk factors identified. Fall Risk Mental Status- Overestimates/Forgets Limitations (15 pts.). Total Diaz Fall Scale indicates No Risk (0-24 pts). Assessment: 13:05 Reassessment: Pt attempting to get in touch with friend or family for transportation to 7 be discharged. 14:00 Reassessment: Pt continues to fall asleep as he tries to call someone to come pick him jl7 up. Unable to reach pt's at this time. Vital Signs: 12:19 BP 156 / 56; Pulse 86; Resp 14; Temp 97.7(TE); Pulse Ox 100% on R/A; Weight 92.99 kg ap3 (M); Height 6 ft. 1 in. (185.42 cm); Pain 5/10; 12:19 Body Mass Index 27.05 (92.99 kg, 185.42 cm) ap3 ED Course: 12:15 Patient arrived in ED. eb 12:20 Juju Saba FNP-C is PHCP. snw 12:20 Calvin Marino DO is Attending Physician. snw 12:20 Triage completed. ap3 12:20 Arm band placed on right wrist. ap3 12:20 Patient has correct armband on for positive identification. Placed in gown. Bed in low jl7 position. Call light in reach. Side rails up X2. Client placed on continuous cardiac and pulse oximetry monitoring. NIBP monitoring applied. 12:34 Santo Greenwood MD is Referral Physician. snw 13:04 Divine Lui RN is Primary Nurse. jl7 13:06 No provider procedures requiring assistance completed. Patient did not have IV access jl7 during this emergency room visit. Administered Medications: No medications were administered Medication: 13:05 VIS not applicable for this client. jl7 Point of Care Testing: Blood Glucose: 12:25 Blood Glucose: 134 mg/dL; bm7 Ranges: Outcome: 12:37 Discharge ordered by . boaz 17:01 Discharged to home via wheelchair, with friend. iw 17:01 Condition: good 17:01 Discharge instructions given to patient, Instructed on discharge instructions, follow up and referral plans. Demonstrated understanding of instructions, follow-up care. 17:01 Patient left the ED. iw Signatures: Juju Saba, ASSEMBLER SURGICAL GARMENT-C ASSEMBLER SURGICAL GARMENT-Csnw Matilde Carrasquillo, RN RN iw Divine Lui RN RN jl7 Antonieta Cage RN Bren Shipley Brittany, RN RN bm7
--- NOTE | 2021-10-17 12:38 | EDPHYS ---
Physician Documentation [facility] Name: Giovany Carrasquillo Age: 66 yrs Sex: Male : 1955 Arrival Date: 10/17/2021 Time: 12:15 Bed Treatment Private MD: ED Physician Calvin Marino HPI: 10/17 12:39 This 66 yrs old Black Male presents to ER via EMS with complaints of pain. snw 12:39 The patient presents with pain, that is acute. Context: Problem is a result from a snw previous injury: Yes. calcaneal fx yesterday. Onset: The symptoms/episode began/occurred gradually. Associated signs and symptoms: Pertinent positives: of the left foot. Treatment prior to arrival includes: splinting the affected extremity. Severity of symptoms: At their worst the symptoms were moderate. It is unknown whether or not the patient has had similar symptoms in the past. The patient has been recently seen by a physician: The patient has been recently seen at the [facility] Emergency Department, yesterday. pt states he is here for pain control. Pt was sleeping on my arrival to assess. Awoke, A\T\O x 3. Returned to slumber during my conversation. Historical: - Allergies: 13:04 No Known Allergies; jl7 - Home Meds: 12:20 blood pressure medicine [Active]; Flomax Oral [Active]; ap3 - PMHx: 12:20 Hypercholesterolemia; Hypertension; ap3 - Immunization history:: Adult Immunizations up to date. - Social history:: Smoking status: Patient/guardian denies using street drugs, IV drugs, tobacco products. ROS: 12:39 Constitutional: Negative for fever, chills, and weight loss, Eyes: Negative for injury, snw pain, redness, and discharge, ENT: Negative for injury, pain, and discharge, Neck: Negative for injury, pain, and swelling, Cardiovascular: Negative for chest pain, palpitations, and edema, Respiratory: Negative for shortness of breath, cough, wheezing, and pleuritic chest pain, Abdomen/GI: Negative for abdominal pain, nausea, vomiting, diarrhea, and constipation. 12:39 : Negative for injury, bleeding, discharge, and swelling, MS/Extremity: Negative for injury and deformity, Skin: Negative for injury, rash, and discoloration, Neuro: Negative for headache, weakness, numbness, tingling, and seizure, Psych: Negative for depression, anxiety, suicide ideation, homicidal ideation, and hallucinations. 12:39 Back: Negative for pain at rest, pain with movement. Exam: 12:39 Constitutional: This is a well developed, well nourished patient who is awake, alert, snw and in no acute distress. Head/Face: Normocephalic, atraumatic. Eyes: Pupils equal round and reactive to light, extra-ocular motions intact. Lids and lashes normal. Conjunctiva and sclera are non-icteric and not injected. Cornea within normal limits. Periorbital areas with no swelling, redness, or edema. ENT: Nares patent. No nasal discharge, no septal abnormalities noted. Tympanic membranes are normal and external auditory canals are clear. Oropharynx with no redness, swelling, or masses, exudates, or evidence of obstruction, uvula midline. Mucous membranes moist. Neck: Trachea midline, no thyromegaly or masses palpated, and no cervical lymphadenopathy. Supple, full range of motion without nuchal rigidity, or vertebral point tenderness. No Meningismus. Chest/axilla: Normal chest wall appearance and motion. Nontender with no deformity. No lesions are appreciated. Cardiovascular: Regular rate and rhythm with a normal S1 and S2. No gallops, murmurs, or rubs. Normal PMI, no JVD. No pulse deficits. Respiratory: Lungs have equal breath sounds bilaterally, clear to auscultation and percussion. No rales, rhonchi or wheezes noted. No increased work of breathing, no retractions or nasal flaring. Abdomen/GI: Soft, non-tender, with normal bowel sounds. No distension or tympany. No guarding or rebound. No evidence of tenderness throughout. Back: No spinal tenderness. No costovertebral tenderness. Full range of motion. Skin: Warm, dry with normal turgor. Normal color with no rashes, no lesions, and no evidence of cellulitis. Neuro: Awake and alert, GCS 15, oriented to person, place, time, and situation. Cranial nerves II-XII grossly intact. Motor strength 5/5 in all extremities. Sensory grossly intact. Cerebellar exam normal. Normal gait. Psych: Awake, alert, with orientation to person, place and time. Behavior, mood, and affect are within normal limits. 12:39 Musculoskeletal/extremity: Extremities: grossly normal except: noted in the left foot: left lower ext in splint, positive peripheral pulses. skin w/d, no discoloration, no compartment syndrome s/s. Vital Signs: 12:19 BP 156 / 56; Pulse 86; Resp 14; Temp 97.7(TE); Pulse Ox 100% on R/A; Weight 92.99 kg ap3 (M); Height 6 ft. 1 in. (185.42 cm); Pain 5/10; 12:19 Body Mass Index 27.05 (92.99 kg, 185.42 cm) ap3 MDM: 12:37 Patient medically screened. snw 12:38 Data reviewed: vital signs, nurses notes. Data interpreted: Pulse oximetry: on room air snw is 100 %. Interpretation: normal. Counseling: I had a detailed discussion with the patient and/or guardian regarding: the historical points, exam findings, and any diagnostic results supporting the discharge/admit diagnosis, the presence of at least one elevated blood pressure reading (>120/80) during this emergency department visit, the need for outpatient follow up, for definitive care. Special discussion: Based on the history and exam findings, there is no indication for further emergent testing or inpatient evaluation. I discussed with the patient/guardian the need to see the orthopedic surgeon for further evaluation of the symptoms. Administered Medications: No medications were administered Point of Care Testing: Blood Glucose: 12:25 Blood Glucose: 134 mg/dL; bm7 Ranges: Critical Glucose Levels:Adult <50 mg/dl or >400 mg/dl <40 mg/dl or >180 mg/dl Disposition: 21:09 Co-signature as Attending Physician, Calvin MCKEE was immediately available on-site ms3 in the Emergency Department for consultation in the care of the patient. . Disposition Summary: 10/17/21 12:37 Discharge Ordered Location: Home snw Condition: Stable snw Diagnosis - Fracture of calcaneus - 10/16/21 snw Followup: snw - With: Emergency Department - When: As needed - Reason: Worsening of condition Followup: snw - With: Santo Greenwood MD - When: 2 - 3 days - Reason: Recheck today's complaints, Continuance of care, Re-evaluation by your physician Discharge Instructions: - Discharge Summary Sheet snw - Elastic Bandage and RICE Therapy snw - RICE Therapy for Routine Care of Injuries snw Forms: - Medication Reconciliation Form snw - Thank You Letter snw - Antibiotic Education snw - Prescription Opioid Use snw Signatures: Juju Saba, REFUGIO-C METAL FURNITURE REPAIRER-Csnw Divine Lui RN RN jl7 Antonieta Cage RN RN ap3 Calvin Marino, DO REYES ms3
[2021-10-17 18:44] VITALS: BP 156/56; TEMP 97.7; O2SAT 100
== END 2021-10-17 17:01 | disposition home or self-care (01) ==
LOC: ER 12:12
DX: M79.672 Pain in left foot (principal); S92.002D Unspecified fracture of left calcaneus, subsequent encounter for fracture with routine healing
CPT/HCPCS: 99283

== ENCOUNTER 2021-10-18 01:29 | Emergency (ER) | payer OTHER ==
--- OUTSIDE RECORDS SUMMARY | 2021-10-18 01:32 | XMS REPORT | Continuity of Care Document ---
:1955 Author Organization [facility] t Address [address] [place] [address] Care Team Providers Name Role Phone Enrique Multani Attending Clinician Unavailable ELIS LONGO Attending Clinician Unavailable SANGEETA RUTLEDGE Attending Clinician Unavailable FACUNDO RUBIN Attending Clinician Unavailable DIPAK DOBBS Attending Clinician Unavailable Payers Payer Name Policy Type Policy Number Effective Date Expiration Date S soniakandi CAROL/ANKITA [id number] 2019 MEDICARE ADVANTAGE 00:00:00 Problems This patient has no known problems. Allergies, Adverse Reactions, Alerts Allergy Allergy Status Severity Reaction(s) Onset Inactive Treating Comm ents Source Name Type Date Date Clinician NO KNOWN Drug Active Univers [facility]ERGIE Class [facility] of [facility] Medications This patient has no known medications. Procedures This patient has no known procedures. Encounters Start End Encounter Admission Attending Care Care Encounter Source Date/Time Date/Time Type Type Clinicians Facility Department ID 2021-08-02 Outpatient Rangel [facility] [id number] Common 11:38:01 Enrique [facility] 2021-04-[address] [facility] [id number] Common 09:39:01 Enrique [facility] 2021-04-03 Outpatient Rangel [facility] [id number] Common 14:40:27 Enrique [facility] 2021-04-03 Outpatient Multani, [facility] [id number] Common 14:17:15 [facility] [id number] [facility] 2021-04-11 2021-04-11 ambulatory STLMLC ST[facility] [id number] Common 00:00:00 00:00:00 [facility] 2021-04-11 2021-04-11 ambulatory STLMLC ST[facility] [id number] Common 00:00:00 00:00:00 [facility] 2021-04-09 2021-04-09 ambulatory STLMLC ST[facility] [id number] Common 00:00:00 00:00:00 [facility] 2021-04-03 2021-04-03 ambulatory STLMLC STLMLC [id number] Common 00:00:00 00:00:00 [facility] 2021-04-01 2021-04-01 ambulatory STLMLC STL[facility]C [id number] Common 00:00:00 00:00:00 [facility] 2021-04-01 2021-04-01 ambulatory STLMLC STLMLC [id number] Common 00:00:00 00:00:00 [facility] 2020-10-02 2020-10-02 Outpatient R DONTA, [facility] [id number] Univers 15:00:00 15:00:00 ELIS [id number] [facility] 2020-10-02 2020-10-02 Outpatient R DONTA, [facility] [id number] Univers 15:00:00 15:00:00 ELIS [facility] 2020-09-20 2020-09-20 Outpatient R DONTA, [facility] [id number] Univers 15:00:00 15:00:00 ELIS [id number] [facility] 2020-09-20 2020-09-20 Outpatient R DONTA, [facility] [id number] Univers 15:00:00 15:00:00 ELIS [facility] 2020-09-19 2020-09-19 Outpatient R DONTA, [facility] [id number] Univers 11:20:00 11:20:00 ELIS [id number] ity o f [facility] 2020-09-07 2020-09-07 Outpatient R DONTA, [facility] [id number] Univers 13:00:00 13:00:00 RIGOBERTOMILYSHELBI [id number] ity o f [facility] 2020-09-07 2020-09-07 Outpatient R DONTA, [facility] [id number] Univers 13:00:00 13:00:00 ELIS stewarty o f [facility] 2020-08-22 2020-08-22 Outpatient R DONTA, [facility] [id number] Univers 09:20:00 09:20:00 RIGOBERTOFRANCISCO [id number] ity o [facility] 2020-08-22 2020-08-22 Outpatient R DONTA, [facility] [id number] Univers 09:20:00 09:20:00 RIGOBERTOFRANCISCO stewart o [facility] 2020-01-30 2020-01-30 Outpatient R ALZWERI, [facility] [id number] Univers 15:00:00 15:00:00 SANGEETA [id number] [facility] 2020-01-30 2020-01-30 Outpatient R ALZWERI, [facility] [id number] Univers [facility]:00[facility] 2020-01-02 Outpatient R GRAMM, [facility] [id number] Univers 13:15:00 13:15:00 FACUNDO [id number] [facility] 2020-01-02 2020-01-02 Outpatient R GRAMM, [facility] [id number] Univers 13:15:00 13:15:00 FACUNDO [facility] 2019-11-28 2019-11-28 Outpatient R ALZWERI, [facility] [id number] Univers 15:30:00 15:30:00 SANGEETA [id number] [facility] 2019-11-28 2019-11-28 Outpatient R ALZWERI, [facility] [id number] Univers 15:30:00 [facility]-11[facility]21 2019-11-21 Outpatient R [facility] [id number] Univers 13:00:00 13:00:00 [id number] ity [facility] 2019-11-21 2019-11-21 Outpatient R [facility] [id number] Univers 13:00:00 13:00:00 ity of [facility] 2019-10-27 2019-10-27 Outpatient R MATY [facility] [id number] Univers 15:30:00 15:30:00 SANGEETA ity [facility] 2019-10-27 2019-10-27 Outpatient R MATY [facility] [id number] Univers 15:30:00 15:30:00 SANGEETA ity [facility] 2019-10-12 2019-10-12 Outpatient R [facility] [id number] Univers 13:45:00 13:45:00 ity [facility] 2019-10-12 2019-10-12 Outpatient R [facility] [id number] Univers 13:45:00 13:45:00 ity [facility] 2019-10-10 2019-10-10 Outpatient R [facility] [id number] Univers 14:45:00 14:45:00 ity [facility] 2019-10-10 2019-10-10 Outpatient R DILIA [facility] [id number] Univers 14:45:00 14:45:00 DIPAK ity [facility] 2019-06-28 2019-06-28 Outpatient R DONTA, [facility] [id number] Univers 14:40:00 14:40:00 ELIS [id number] ity o f [facility] 2019-06-28 2019-06-28 Outpatient R DONTA [facility] [id number] Univers 14:40:00 14:40:00 ELIS ity o f [facility] 2019-06-13 2019-06-13 Outpatient R MATY [facility] [id number] Univers 13:45:00 13:45:00 [facility] ity [facility] 2019-06-13 2019-06-13 [facility] [id number] Univers 13:45:00 13:45:00 [facility] ity [facility] 2019-06-07 2019-06-07 Outpatient R DONTA [facility] [id number] Univers 14:20:00 14:20:00 ELIS [id number] trey o [facility] 2019-06-07 2019-06-07 Outpatient R DONTA [facility] [id number] Univers 14:20:00 14:20:00 ELIS [facility] 2019-05-16 2019-05-16 Outpatient R [facility] [id number] Univers 15:00:00 15:00:00 [facility] 2019-05-16 2019-05-16 Outpatient R MATY [facility] [id number] Univers 14:30:00 14:30:00 SANGEETA [facility] Results This patient has no known results.
--- NOTE | 2021-10-18 02:53 | ER ---
Nurse's Notes [facility] Name: Giovany Carrasquillo Age: 66 yrs Sex: Male : 1955 Arrival Date: 10/18/2021 Time: 01:30 Bed 3 Private MD: Diagnosis: Fall on same level, unspecified Presentation: 10/18 01:42 Chief complaint: Patient reports " I am in so much pain, that is why I cannot keep my tw5 balance." Patient observed falling alseep mid conversation. Patient appears drowsy and unsteady when he stands. Coronavirus screen: At this time, the client does not indicate any symptoms associated with coronavirus-19. Ebola Screen: Patient negative for fever greater than or equal to 101.5 degrees Fahrenheit, and additional compatible Ebola Virus Disease symptoms Patient denies exposure to infectious person. Patient denies travel to an Ebola-affected area in the 21 days before illness onset. 01:42 Method Of Arrival: Wheelchair tw5 01:44 Risk Assessment: Do you want to hurt yourself or someone else? Patient reports no tw5 desire to harm self or others. Onset of symptoms is unknown. 01:44 Acuity: MADONNA 3 tw5 02:37 Initial Sepsis Screen: Does the patient meet any 2 criteria? No. Patient's initial ke1 sepsis screen is negative. Does the patient have a suspected source of infection? No. Patient's initial sepsis screen is negative. Triage Assessment: 01:44 General: Appears unkempt, Patient urinated on himself in bathroom. Fresh pants and gown tw5 provided to patient.. Behavior is cooperative, drowsy, Smells of urine. Pain: Complains of pain in left foot. Historical: - Allergies: 01:44 No Known Allergies; tw5 - PMHx: 01:44 Hypercholesterolemia; Hypertension; tw5 - Immunization history:: Adult Immunizations unknown. - Social history:: Smoking status: Patient denies any tobacco usage or history of. Screenin:36 Abuse screen: Denies threats or abuse. Nutritional screening: No deficits noted. ke1 Tuberculosis screening: No symptoms or risk factors identified. Fall Risk Fall in past 12 months (25 points). No secondary diagnosis (0 pts). No IV (0 pts). Ambulatory Aid- None/Bed Rest/Nurse Assist (0 pts). Gait- Weak (10 pts.). Mental Status- Oriented to own ability (0 pts). Total Diaz Fall Scale indicates. Assessment: 01:30 General: Appears in no apparent distress. unkempt, Behavior is cooperative. Pain: vc1 Denies pain. Neuro: Level of Consciousness is lethargic, Oriented to person, place, situation. Cardiovascular: No deficits noted. Respiratory: Airway is patent Respiratory effort is even, unlabored, Respiratory pattern is regular, symmetrical. 02:30 Reassessment: No changes from previously documented assessment. Patient and/or family vc1 updated on plan of care and expected duration. Pain level reassessed. 03:30 Reassessment: No changes from previously documented assessment. Patient and/or family vc1 updated on plan of care and expected duration. Pain level reassessed. General: Appears in no apparent distress. Behavior is drowsy. 04:07 Reassessment: Pt transferred home by wheelchair van. vc1 Vital Signs: 01:42 Temp 98.2; tw5 01:44 Resp 14; Temp 98.2(O); Weight 99.2 kg; Height 6 ft. 1 in. (185.42 cm); tw5 04:00 BP 136 / 86; Pulse 78; Resp 14; Pulse Ox 99% ; vc1 01:44 Body Mass Index 28.85 (99.20 kg, 185.42 cm) tw5 ED Course: 01:30 Patient arrived in ED. bp1 01:32 Irish Multani MD is Attending Physician. sp3 01:44 Triage completed. tw5 02:00 CT Head Brain wo Cont In Process Unspecified. EDMS 02:01 Shoulder Right (2 View) XRAY In Process Unspecified. EDMS 02:36 Allen Medeiros, CORA is Primary Nurse. ke1 02:37 Arm band placed on. ke1 02:38 Bed in low position. Call light in reach. Side rails up X 1. Side rails up X2. ke1 04:05 No provider procedures requiring assistance completed. Patient did not have IV access vc1 during this emergency room visit. Administered Medications: No medications were administered Medication: 04:07 VIS not applicable for this client. vc1 Outcome: 02:52 Discharge ordered by . sp3 04:05 Discharged to home via ambulance. vc1 04:05 Condition: stable 04:05 Discharge instructions given to patient, Instructed on discharge instructions, follow up and referral plans. Demonstrated understanding of instructions, follow-up care. 04:09 Patient left the ED. vc1 Signatures: Dispatcher [employer] EDMS Misty Barrios Setul, MD MD sp3 Ashley García tw5 Lety Blackwell RN RN vc1 Allen Medeiros RN RN ke1 Corrections: (The following items were deleted from the chart) 02:14 01:42 Chief complaint: Patient found in lobby bathroom after falling over. Patient tw5 reports " I am in so much pain, that is why I cannot keep my balance." Patient observed falling alseep mid conversation. Patient appears drowsy and unsteady when he stands. tw5
--- NOTE | 2021-10-18 02:53 | EDPHYS ---
Physician Documentation [facility] Name: Giovany Carrasquillo Age: 66 yrs Sex: Male : 1955 Arrival Date: 10/18/2021 Time: 01:30 Bed 3 Private MD: ED Physician Irish Multani HPI: 10/18 01:48 This 66 yrs old Black Male presents to ER via Wheelchair with complaints of shoulder sp3 and head pain. 01:48 66-year-old male history of hypertension and hypercholesterolemia and a left calcaneal sp3 fracture noticed 2 days ago and who also had a earlier visit in the ED for pain control presents for head injury and right shoulder pain. Patient was discharged approximately 14 hours ago from this ED and has been in the waiting room since then trying to arrange transportation. I will waiting for transportation and he went to the bathroom and due to his calcaneal fracture was not able to make it to the restroom at which point he urinated on himself due to him not making it to the toilet and subsequently fell and hit his right shoulder and claims he had his head on the wall as well. He denies any significant headache or loss of consciousness and states that his pain on his shoulder is also mild. He is much more awake now that he was in the room that he was at triage. He states that he has continued pain in the left foot due to the fracture. He denies any back pain or pelvic pain. Historical: - Allergies: 01:44 No Known Allergies; tw5 - PMHx: 01:44 Hypercholesterolemia; Hypertension; tw5 - Immunization history:: Adult Immunizations unknown. - Social history:: Smoking status: Patient denies any tobacco usage or history of. ROS: 01:50 Constitutional: Negative for fever, chills, and weight loss, Eyes: Negative for injury, sp3 pain, redness, and discharge, ENT: Negative for injury, pain, and discharge, Neck: Negative for injury, pain, and swelling, Cardiovascular: Negative for chest pain, palpitations, and edema, Respiratory: Negative for shortness of breath, cough, wheezing, and pleuritic chest pain, Abdomen/GI: Negative for abdominal pain, nausea, vomiting, diarrhea, and constipation, Back: Negative for injury and pain, Skin: Negative for injury, rash, and discoloration, Psych: Negative for depression, anxiety, suicide ideation, homicidal ideation, and hallucinations, Allergy/Immunology: Negative for hives, rash, and allergies, Endocrine: Negative for neck swelling, polydipsia, polyuria, polyphagia, and marked weight changes. 01:50 All other systems are negative. Exam: 01:50 Constitutional: This is a well developed, well nourished patient who is awake, alert, sp3 and in no acute distress. Head/Face: Normocephalic, atraumatic. Eyes: Pupils equal round and reactive to light, extra-ocular motions intact. Lids and lashes normal. Conjunctiva and sclera are non-icteric and not injected. Cornea within normal limits. Periorbital areas with no swelling, redness, or edema. ENT: Nares patent. No nasal discharge, no septal abnormalities noted. External auditory canals are clear. Oropharynx with no redness, swelling, or masses, exudates, or evidence of obstruction, uvula midline. Mucous membranes moist. Neck: Trachea midline, no thyromegaly or masses palpated, and no cervical lymphadenopathy. Supple, full range of motion without nuchal rigidity, or vertebral point tenderness. No Meningismus. Chest/axilla: Normal chest wall appearance and motion. Nontender with no deformity. No lesions are appreciated. Cardiovascular: Regular rate and rhythm with a normal S1 and S2. No gallops, murmurs, or rubs. Normal PMI, no JVD. No pulse deficits. Respiratory: Lungs have equal breath sounds bilaterally, clear to auscultation and percussion. No rales, rhonchi or wheezes noted. No increased work of breathing, no retractions or nasal flaring. Abdomen/GI: Soft, non-tender, with normal bowel sounds. No distension or tympany. No guarding or rebound. No evidence of tenderness throughout. Skin: Warm, dry with normal turgor. Normal color with no rashes, no lesions, and no evidence of cellulitis. Neuro: Awake and alert, GCS 15, oriented to person, place, time, and situation. Cranial nerves II-XII grossly intact. Motor strength 5/5 in all extremities. Sensory grossly intact. Cerebellar exam normal. Normal gait. Psych: Awake, alert, with orientation to person, place and time. Behavior, mood, and affect are within normal limits. 01:50 Musculoskeletal/extremity: Splint noted on the left foot with normal neurovascular exam distally on the toes which are still observable. No nail hygiene noted. She also has mild soft tissue pain on the right shoulder without evidence of injury. Full range of motion is present in the shoulder. There is no evidence of head injury at this time.. Vital Signs: 01:42 Temp 98.2; tw5 01:44 Resp 14; Temp 98.2(O); Weight 99.2 kg; Height 6 ft. 1 in. (185.42 cm); tw5 04:00 BP 136 / 86; Pulse 78; Resp 14; Pulse Ox 99% ; vc1 01:44 Body Mass Index 28.85 (99.20 kg, 185.42 cm) tw5 MDM: 01:42 Patient medically screened. sp3 01:51 Data reviewed: vital signs, nurses notes. ED course: 64-year-old male who was sp3 discharged prior and now presents after a fall while waiting for his ride. We will obtain CT scan of the head and x-ray of the right shoulder keep patient in the ED until morning where we can arrange proper transportation. He denies having significant pain (except his left foot) but declined any further pain medication at this time.. 02:51 ED course: CT scan of the head and x-ray of the right shoulder are normal. Patient will sp3 be discharged but can stay in the ED until morning when his ride can pick him up.. 08 01:42 Order name: Shoulder Right (2 View) XRAY sp3 10/18 01:43 Order name: CT Head Brain wo Cont sp3 Administered Medications: No medications were administered Disposition Summary: 10/18/21 02:52 Discharge Ordered Location: Home sp3 Condition: Stable sp3 Diagnosis - Fall on same level, unspecified sp3 Followup: sp3 - With: Private Physician - When: Upon discharge from the Emergency Department - Reason: Continuance of care Discharge Instructions: - Discharge Summary Sheet sp3 - Fall Prevention in the Home, Adult sp3 Forms: - Medication Reconciliation Form sp3 - Thank You Letter sp3 - Antibiotic Education sp3 - Prescription Opioid Use sp3 Signatures: Dispatcher [employer] EDMS Irish Multani MD MD sp3 Ashley García tw5 Lety Blackwell RN RN vc1 Allen Medeiros, RN RN ke1
[2021-10-18 06:47] VITALS: TEMP 98.2
[2021-10-18 06:51] VITALS: BP 136/86; O2SAT 99
--- NOTE | 2021-10-18 10:34 | RAD REPORT ---
EXAM DESCRIPTION: CT of the head without contrast CLINICAL HISTORY: Trauma COMPARISON: None available TECHNIQUE: Axial CT of the head obtained from the skull apex to the skull base without contrast. Thi s exam was performed according to our departmental dose-optimization program, which includes automate d exposure control, adjustment of the mA and/or kV according to patient size and/or use of iterative reconstruction technique. FINDINGS: No acute intracranial hemorrhage identified. No mass, mass effect, shift of the midline, a bnormal extra-axial fluid collection or CT evidence of acute ischemic change identified. The ventricu lar system and sulcal spaces are nonenlarged. Confluent areas of hypodensity throughout the suprate ntorial white matter are nonspecific and may be related to chronic small vessel ischemic change. The visualized paranasal sinuses and mastoid air cells are well aerated. No skull fracture identifi ed. Visualized orbits and globes are unremarkable. Atherosclerotic calcification of the intracranial internal carotid arteries. IMPRESSION: 1. No acute intracranial abnormality by CT criteria. Electronically signed by: Mamadou Alba 10/18/2021 2:24 AM CDT Due to tmporary technical issues with the PACS/Fluency reporting system, reports are being signed by the in house radiologists without review as a courtesy to insure prompt reporting. The interpreting r adiologist is fully responsible for the content of the report.
--- NOTE | 2021-10-18 10:54 | RAD REPORT ---
EXAM DESCRIPTION: Shoulder Right 2 View CLINICAL HISTORY: Pain Shoulder Right 2 View COMPARISON: None. FINDINGS: 2 views of the right shoulder. No acute fracture or dislocation. Osteopenia. Degenerative change of the right shoulder. No acute abnormality of the visualized right ribs. IMPRESSION: 1. No acute fracture or dislocation. Electronically signed by: Mamadou Alba 10/18/2021 2:19 AM CDT Due to tmporary technical issues with the PACS/Fluency reporting system, reports are being signed by the in house radiologists without review as a courtesy to insure prompt reporting. The interpreting r adiologist is fully responsible for the content of the report.
== END 2021-10-18 04:09 | disposition home or self-care (01) ==
LOC: ER 01:29
DX: M25.511 Pain in right shoulder (principal); R51.9 Headache, unspecified; W18.30XA Fall on same level, unspecified, initial encounter; I10 Essential (primary) hypertension
CPT/HCPCS: 70450; 99283